=== PATIENT | female | born 1990 | race Caucasian/White ===

== ENCOUNTER 2018-12-10 16:30 | Outpatient (CLI) | payer MEDICAID ==
[~2018-12-10] VITALS: Ht 157.5 cm; Wt 74.0 kg
[2018-12-10 16:35] VITALS: Ht 157.5 cm; Wt 74.0 kg
[2018-12-10 17:10] VITALS: BP 137/93; PULSE 127; RESP 20
[2018-12-10] MEDS ORDERED: PREN1TAB13 PO (17:10)
[2018-12-10] MEDS ORDERED: ACETAMINOPHEN 325 MG TAB PO ONE (18:45)
--- NOTE | 2018-12-10 20:50 | PN ---
Triage Information Date/Time 12/10/18 Reason for visit: elevated BP Weeks of Gestation 22w5d /Para Diabetes: none Hypertention: none Additional information FH mom has HTN was not told to have BP prior to left periorbital headache but self limited ,by the time I went in she is eating and headache is gone Objective Vital Signs Date Temp Pulse Resp B/P (MAP) Pulse Ox O2 O2 Flow FiO2 Time Delivery Rate 12/10/18 98.1 127 20 137/93 Room Air 17:10 (108) Heart Rate: 140's Contractions: None Results/Medications Result Diagram: 12/10/18 1652 12/10/18 1652 Results 24 hrs Laboratory Tests Test 12/10/18 16:45 12/10/18 16:49 12/10/18 16:52 Urine Color STRAW Urine Clarity CLEAR Urine pH 7.0 Urine Specific [place] 1.002 L Urine Ketones NEGATIVE Urine Nitrite NEGATIVE Urine Bilirubin NEGATIVE Urine Urobilinogen NEGATIVE Urine Leukocyte Esterase NEGATIVE Urine Hemoglobin NEGATIVE Urine Glucose NEGATIVE Urine Total Protein NEGATIVE Total Bilirubin 0.1 L 0.1 L Direct Bilirubin 0.00 0.00 Indirect Bilirubin 0.1 0.1 Aspartate Amino Transf (AST/SGOT) 17 19 Alanine Aminotransferase (ALT/SGPT) 15 12 L Alkaline Phosphatase 90 95 Total Protein 7.6 8.2 H Albumin 4.2 4.3 White Blood Count 11.7 H Red Blood Count 3.51 L Hemoglobin 10.9 L Hematocrit 32.5 L Mean Corpuscular Volume 92.6 Mean Corpuscular Hemoglobin 31.1 Mean Corpuscular Hemoglobin Concent 33.5 Red Cell Distribution Width 13.9 Platelet Count 341 Mean Platelet Volume 9.8 Immature Granulocytes % 1.600 H Neutrophils % 76.6 Lymphocytes % 14.1 L Monocytes % 6.5 Eosinophils % 0.5 Basophils % 0.7 Nucleated Red Blood Cells % 0.0 Immature Granulocytes # 0.190 H Neutrophils # 8.9 H Lymphocytes # 1.7 Monocytes # 0.8 Eosinophils # 0.1 Basophils # 0.1 Nucleated Red Blood Cells # 0.0 Sodium Level 140 Potassium Level 4.1 Chloride Level 105 Carbon Dioxide Level 21 Anion Gap 14 H Blood Urea Nitrogen 6 L Creatinine 0.50 Est Glomerular Filtrat Rate mL/min > 60 Glucose Level 99 Uric Acid 4.5 Calcium Level 10.5 H Globulin 3.90 H Albumin/Globulin Ratio 1.10 Disposition: Discharge Assessment/Plan A IUP 22w5d borderline high BP f/u closely for monitoring BP ay her OB has appointmenet in one wk P RTH JAMES Reid MD Dec 10, 2018 20:50
--- NOTE | 2018-12-11 06:04 | TRIAGE ---
OB Triage Datetime Report Generated by CPN: 12/11/2018 06:03 Datetime: 12/10/2018 20:13 Stage of : OB Triage Datetime: 12/10/2018 19:29 Stage of : OB Triage Monitor Mode: External Quality: Mild Pattern: Normal: <= 5 Contractions in 10 Minutes Resting Tone Vian: Relaxed Heart Rate FHR Baseline Rate: 150 Monitor Mode: External US Datetime: 12/10/2018 19:12 Stage of : OB Triage Heart Rate FHR Baseline Rate: 150 Monitor Mode: External US FHR Baseline Changes: No Baseline Change Variability: Moderate 6-25 bpm Accelerations: 15X15 Decelerations: None Datetime: 12/10/2018 19:00 Labor Evaluation Frequency: 0 Monitor Mode: External Heart Rate FHR Baseline Rate: 140 Monitor Mode: External US Datetime: 12/10/2018 18:00 Labor Evaluation Frequency: X2 Monitor Mode: External Duration (sec)2399: 40 Quality: Mild Pattern: Normal: <= 5 Contractions in 10 Minutes Resting Tone Vian: Relaxed Heart Rate FHR Baseline Rate: 150 Monitor Mode: External US Datetime: 12/10/2018 16:49 Stage of : OB Triage Assessment Type: Triage Maternal Assessment Level of Consciousness: Fully Conscious Headache: Generalized Blurred Vision: No Respiratory Effort: Unlabored; Regular Rhythm; Equal Expansion Breath Sounds, Left: Clear and Equal Breath Sounds, Right: Clear and Equal Nausea/Vomiting: Denies RUQ Epigastric Pain: Denies Lower Extremities Edema: None Degree: None Upper Extremities Edema: None Degree: None Facial Edema: None Temperature Route: Axillary Fall Risk Assessment History of Falling: (0) No Secondary Diagnosis: (0) No Ambulatory Aid: (0) Bedrest/Nurse Assist IV Therapy: (0) No Gait: (0) Normal/Bedrest/Immobile Mental Status: (0) Oriented to Own Ability Fall Score: 0 Fall Risk Score Definition: No Risk: No action required Monitor Mode: External Pain Assessment Pain Scale: 0 Pain Presence: None/Denies Pain Type: N/A Pain Goal: 0 Vaginal Exam Membrane Status: Intact Datetime: 12/10/2018 16:37 EGA: 22.5 Datetime: 12/10/2018 16:16 Time of Arrival: 12/10/2018 16:16 Arrived By: Ambulatory Arrived From: Office Chief Complaint: ELEVATED BLOOD PRESSURE IN CLINIC Movement: Present Contractions: Denies/Absent Rupture of Membranes: Denies Vaginal Bleeding: None Vaginal Discharge: Denies Recent Sexual Intercouse: Denies Abdominal Trauma: Not Applicable Patient Complaints: None Time Provider Notified: 12/10/2018 17:00 Provider Notified: DR. BENNETT Initial Plan: [facility]
== END 2018-12-10 20:25 | disposition home or self-care (01) ==
LOC: OBT 16:30 → L-D 16:32 → OBT 20:25
PROVIDERS: ATTEND Obstetrics & Gynecology
DX: O13.2 Gestational [pregnancy-induced] hypertension without significant proteinuria, second trimester (principal); Z3A.22 22 weeks gestation of pregnancy
CPT/HCPCS: 80053; 80076; 81003; 84560; 85025; Z7610; 36415; G0463

== ENCOUNTER 2019-02-11 15:37 | Inpatient (IN) | payer MEDICAID ==
[~2019-02-11] VITALS: Ht 157.5 cm; Wt 75.5 kg
[~2019-02-11 15:37] MED LIST: PREN1TAB13 PO
[2019-02-11 15:51] VITALS: BP 125/87; PULSE 98; RESP 17; Ht 157.5 cm; Wt 75.5 kg
[2019-02-11] MEDS ORDERED: AL HYDROX/MG HYDROX/SIMETH 30 ML CUP PO PRN (19:00)
[2019-02-11] MEDS ORDERED: ONDANSETRON 4 MG INJ IV PRN (19:00)
--- NOTE | 2019-02-11 20:15 | HP ---
Date/Time of Note Date/Time of Note DATE: 02/11/19 TIME: 20:15 OB - History Hx of Present Free Text/Dictation OB Triage Triage Information Date/Time February 11, 2019 at 16:08 Reason for visit: Elevated blood pressure in the office. Patient was sent for rule out PIH Weeks of Gestation 31 weeks and 5 days /Para 1 para 0 Diabetes: none Hypertention: none Additional information 28-year-old G1, P0 with IUP at 31 weeks and 5 days was seen in the clinic today noted to have elevated blood pressure in the range of 140s over 70s. She was sent to labor and delivery for rule out PIH. Patient reports some episodes of blurred vision and headache. At the time that she was in triage denied any headache, blurred vision epigastric pain or right upper quadrant pain. Patient labs requested and noted to have elevated ALT and AST. Patient blood pressure in triage was in the range of 120s 130s over 80s to 90s. Decision was made to admit the patient for observation number 24-hour urine protein collection and follow-up monitoring closely blood pressure due to occasional presence of symptoms. Objective Vital Signs Date Temp Pulse Resp B/P (MAP) Pulse Ox O2 O2 Flow FiO2 Time Delivery Rate 02/11/19 97.9 98 17 125/87 Room Air 15:51 (100) Heart Rate: 130's Exam Appearance: Alert and oriented. Appears to be mild to moderate distress Abdomen: Soft, gravid, fundal height correlate with gestational age NST: Category 1 Extremities: 1+ to 2+ bilateral nonpitting edema. Bilateral 2+ patellar reflexes noted No contraction in the monitor VS - Last 72 Hours, by Label Date Temp Pulse Resp B/P (MAP) Pulse Ox O2 O2 Flow FiO2 Time Delivery Rate 02/11/19 97.9 98 17 125/87 Room Air 15:51 (100) Laboratory Tests Test 02/11/19 15:39 02/11/19 16:35 Urine Color STRAW Urine Clarity CLEAR Urine pH 8.0 Urine Specific [place] 1.003 Urine Ketones TRACE A Urine Nitrite NEGATIVE Urine Bilirubin NEGATIVE Urine Urobilinogen NEGATIVE Urine Leukocyte Esterase TRACE A Urine Microscopic RBC 0 Urine Microscopic WBC 11 H Urine Squamous Epithelial Cells FEW Urine Bacteria FEW A Urine Yeast (Budding) FEW A Urine Hemoglobin NEGATIVE Urine Glucose NEGATIVE Urine Total Protein NEGATIVE White Blood Count 9.2 # Red Blood Count 3.51 L Hemoglobin 11.0 L Hematocrit 32.1 L Mean Corpuscular Volume 91.5 Mean Corpuscular Hemoglobin 31.3 Mean Corpuscular Hemoglobin Concent 34.3 Red Cell Distribution Width 13.7 Platelet Count 273 Mean Platelet Volume 10.1 Immature Granulocytes % 0.800 H Neutrophils % 76.7 Lymphocytes % 14.7 L Monocytes % 6.5 Eosinophils % 0.5 Basophils % 0.8 Nucleated Red Blood Cells % 0.0 Immature Granulocytes # 0.070 H Neutrophils # 7.1 Lymphocytes # 1.4 Monocytes # 0.6 Eosinophils # 0.1 Basophils # 0.1 Nucleated Red Blood Cells # 0.0 Prothrombin Time 12.6 Prothrombin Time Ratio 1.0 INR International Normalized Ratio 0.93 Activated Partial Thromboplast Time 26.0 Sodium Level 138 Potassium Level 3.7 Chloride Level 110 Carbon Dioxide Level 22 Anion Gap 6 Blood Urea Nitrogen 6 L Creatinine 0.60 Est Glomerular Filtrat Rate mL/min > 60 Glucose Level 94 Uric Acid 5.2 Calcium Level 9.7 Total Bilirubin 0.3 Direct Bilirubin 0.00 Indirect Bilirubin 0.3 Aspartate Amino Transf (AST/SGOT) 44 Alanine Aminotransferase (ALT/SGPT) 74 H Alkaline Phosphatase 117 Total Protein 6.9 Albumin 3.7 Globulin 3.20 Albumin/Globulin Ratio 1.15 Results/Medications Result Diagram: 02/11/19 1635 02/11/19 1635 Results 24 hrs Laboratory Tests Test 02/11/19 15:39 02/11/19 16:35 Urine Color STRAW Urine Clarity CLEAR Urine pH 8.0 Urine Specific [place] 1.003 Urine Ketones TRACE A Urine Nitrite NEGATIVE Urine Bilirubin NEGATIVE Urine Urobilinogen NEGATIVE Urine Leukocyte Esterase TRACE A Urine Microscopic RBC 0 Urine Microscopic WBC 11 H Urine Squamous Epithelial Cells FEW Urine Bacteria FEW A Urine Yeast (Budding) FEW A Urine Hemoglobin NEGATIVE Urine Glucose NEGATIVE Urine Total Protein NEGATIVE White Blood Count 9.2 # Red Blood Count 3.51 L Hemoglobin 11.0 L Hematocrit 32.1 L Mean Corpuscular Volume 91.5 Mean Corpuscular Hemoglobin 31.3 Mean Corpuscular Hemoglobin Concent 34.3 Red Cell Distribution Width 13.7 Platelet Count 273 Mean Platelet Volume 10.1 Immature Granulocytes % 0.800 H Neutrophils % 76.7 Lymphocytes % 14.7 L Monocytes % 6.5 Eosinophils % 0.5 Basophils % 0.8 Nucleated Red Blood Cells % 0.0 Immature Granulocytes # 0.070 H Neutrophils # 7.1 Lymphocytes # 1.4 Monocytes # 0.6 Eosinophils # 0.1 Basophils # 0.1 Nucleated Red Blood Cells # 0.0 Prothrombin Time 12.6 Prothrombin Time Ratio 1.0 INR International Normalized Ratio 0.93 Activated Partial Thromboplast Time 26.0 Sodium Level 138 Potassium Level 3.7 Chloride Level 110 Carbon Dioxide Level 22 Anion Gap 6 Blood Urea Nitrogen 6 L Creatinine 0.60 Est Glomerular Filtrat Rate mL/min > 60 Glucose Level 94 Uric Acid 5.2 Calcium Level 9.7 Total Bilirubin 0.3 Direct Bilirubin 0.00 Indirect Bilirubin 0.3 Aspartate Amino Transf (AST/SGOT) 44 Alanine Aminotransferase (ALT/SGPT) 74 H Alkaline Phosphatase 117 Total Protein 6.9 Albumin 3.7 Globulin 3.20 Albumin/Globulin Ratio 1.15 Medications Current Medications Al Hydrox/Mg Hydrox/Simethicone (Mag-Al Plus) 30 ml Q6H PRN PO .GI UPSET; Start 02/11/19 at 19:00 Ondansetron HCl (Zofran Inj) 4 mg Q6H PRN IV NAUSEA/VOMITING; Start 02/11/19 at 19:00 Diagnostic Test (Pha) (Accu-Chek) 1 ea FBSPP XX ; Start 02/12/19 at 06:00; Status UNV Disposition: Admit Assessment/Plan IUP at 31 weeks and 5 days Borderline elevated blood pressure with elevated liver function tests mildly elevated liver function tests Patient will be admitted for close monitoring, 24-hour urine protein collection as well as close monitoring of blood pressure check Plan of care discussed with the patient Primary OB attending aware with follow-up on the patient Copies To: Copies To: CHER HANSON MD February 11, 2019 20:14 Past Family/Social History * Past Medical, Surgical, Family and Obstetric Histories reviewed from chart. OB Admission Exam Vital Signs Vital Signs Vital Signs Date Temp Pulse Resp B/P (MAP) Pulse Ox O2 O2 Flow FiO2 Time Delivery Rate 02/11/19 97.9 98 17 125/87 Room Air 15:51 (100) Last 72 hours Lab Results CBC & BMP 02/11/19 16:35 Liver Function Test 02/11/19 16:35 Alanine Aminotransferase (ALT/SGPT) 74 H Albumin 3.7 Alkaline Phosphatase 117 Aspartate Amino Transf (AST/SGOT) 44 Direct Bilirubin 0.00 Total Protein 6.9 CHER HANSON MD February 11, 2019 20:15
[2019-02-11] MEDS ORDERED: GLUCOSE GEL 15 GRAM TUBE PO PRN ×2 (20:30)
[2019-02-11] MEDS ORDERED: GLUCAGON 1 MG INJ IM PRN (20:30)
[2019-02-11] MEDS ORDERED: GLUCOSE GEL 15 GRAM TUBE BUCCAL PRN (20:30)
[2019-02-11] MEDS ORDERED: DEXTROSE 50% 50 ML SYRINGE IV PRN ×2 (20:30)
[2019-02-12] MEDS ORDERED: ACCU-CHEK XX SCH (06:00)
--- NOTE | 2019-02-12 18:46 | QN ---
Documentation Comment progress note patient seen and evaluated no complaints no headache, n/v, sob visual changes, epigastric pain vs stable afebrile ab gravid, nt, no epigastric tenderness fhr cat 1 a/ iup at 32 wks ga, with elevated liver enzyme (stable) r/o preeclampsia p/ f/u 24 hr urine collection preeclamptic precautions MICHAEL BENNETT MD February 12, 2019 18:46
== END 2019-02-12 22:51 | disposition left against medical advice (07) | DRG 833 ==
LOC: OBT 15:37 → L-D 15:37 → OBT 16:08 → L-D 16:08
PROVIDERS: ADMIT Obstetrics & Gynecology; ATTEND Obstetrics & Gynecology
DX: O14.93 Unspecified pre-eclampsia, third trimester (principal); Z3A.32 32 weeks gestation of pregnancy
CPT/HCPCS: 36415; 76815; 76818; 80053; 81001; 82575; 82962; 84156; 84450; 84460; 84560; 85025; 85610; 85730; 87086; G0463

== ENCOUNTER 2019-02-19 13:46 | Inpatient (IN) | payer MEDICAID ==
[~2019-02-19] VITALS: Ht 157.5 cm; Wt 74.9 kg
[2019-02-19 14:26] VITALS: BP 140/93; PULSE 122; Ht 157.5 cm; Wt 74.9 kg
[2019-02-19] MEDS ORDERED: VANCOMYCIN 1 GM (PMX) 250 ML IVPB SCH (16:30)
[2019-02-19] MEDS: LACTATED RINGER'S 1,000 ML IV SCH (17:20)
[2019-02-19] MEDS: BETAMET NA PHOS/AC(6 MG/ML) 2 ML INJ SYG IM SCH (18:53)
[2019-02-19] MEDS ORDERED: VANCOMYCIN IV PER PHARMACY XX SCH (21:30)
--- NOTE | 2019-02-19 23:20 | QN ---
Documentation Comment 28-year-old 1 para 0 at 32 weeks and 6 days of gestation with estimated date of delivery April 10, 2019 Patient is gestational diabetic diet controlled She was admitted for evaluation of preeclampsia Blood pressure here 141/102 and 133/94 VS - Last 72 Hours, by Label Date Temp Pulse Resp B/P (MAP) Pulse Ox O2 O2 Flow FiO2 Time Delivery Rate 02/19/19 98.3 122 140/93 14:26 (109) heart rate tracing category 1 [place] none February 12, 2019 UR TOT PROT 24HR = 1925.0 mg/24hrs Hematology - 72 Hrs Test 02/19/19 16:58 Hematocrit 34.0 % (37.0-47.0) L Hemoglobin 11.4 g/dl (12.0-16.0) L Mean Corpuscular Hemoglobin 30.9 pg (29.0-33.0) Mean Corpuscular Hemoglobin Concent 33.5 g/dl (32.0-37.0) Mean Corpuscular Volume 92.1 fl (82.0-101.0) Mean Platelet Volume 10.1 fl (7.4-10.4) Platelet Count 254 10^3/UL (140-415) Red Blood Count 3.69 10^6/ul (4.20-5.40) L Red Cell Distribution Width 13.9 % (11.5-14.5) White Blood Count 9.5 10^3/ul (4.8-10.8) Chemistry Test 02/19/19 16:58 02/19/19 19:40 Sodium Level 135 mmol/L (135-144) Potassium Level 4.3 mmol/L (3.5-5.1) Chloride Level 102 mmol/L (97-110) Carbon Dioxide Level 24 mmol/L (21-31) Anion Gap 9 (5-13) Blood Urea Nitrogen 8 mg/dl (7-20) Creatinine 0.82 mg/dl (0.44-1.00) Est Glomerular Filtrat Rate mL/min > 60 mL/min (>60) Glucose Level 104 mg/dl (70-220) Hemoglobin A1c 5.1 % (0-5.9) Uric Acid 5.9 mg/dl (3.1-7.9) Calcium Level 9.1 mg/dl (8.4-10.2) Total Bilirubin 0.4 mg/dl (0.2-1.3) Direct Bilirubin 0.00 mg/dl (0.00-0.20) Indirect Bilirubin 0.4 mg/dl (0-1.1) Aspartate Amino Transf (AST/SGOT) 61 IU/L (15-46) H Alanine Aminotransferase (ALT/SGPT) 83 IU/L (13-69) H Alkaline Phosphatase 125 IU/L (42-121) H Total Protein 7.5 g/dl (6.1-8.1) Albumin 3.8 g/dl (3.3-4.9) Globulin 3.70 g/dl (1.3-3.2) H Albumin/Globulin Ratio 1.02 Bedside Glucose 102 mg/dL (70-220) Urine Results - 72 Hrs Test 02/19/19 14:30 Urine Color YELLOW (YELLOW) Urine Clarity SLIGHTLY CLOUDY (CLEAR) Urine pH 8.0 (5.0-9.0) Urine Specific [place] 1.003 (1.003-1.030) Urine Ketones NEGATIVE mg/dL (NEGATIVE) Urine Nitrite NEGATIVE mg/dL (NEGATIVE) Urine Bilirubin NEGATIVE mg/dL (NEGATIVE) Urine Urobilinogen NEGATIVE mg/dL (NEGATIVE) Urine Leukocyte Esterase 3+ [place]/ul (NEGATIVE) H Urine Microscopic RBC 1 /HPF (0-5) Urine Microscopic WBC 14 /HPF (0-5) H Urine Squamous Epithelial Cells FEW /HPF (FEW) Urine Bacteria MODERATE /HPF (NONE SEEN) Urine Hemoglobin NEGATIVE mg/dL (NEGATIVE) Urine Glucose NEGATIVE mg/dL (NEGATIVE) Urine Total Protein NEGATIVE mg/dl (NEGATIVE) PROCEDURE: US OB biophysical profile. CLINICAL INDICATION: Decreased movements. labor. TECHNIQUE: Multiple sonographic images of the pelvis were obtained. The images were reviewed on a PACS workstation. COMPARISON: 02/11/2019 FINDINGS: There is a live intrauterine gestation. There is a normal amount of amniotic fluid with an B[place] = 16.7 cm. Maximal volume pocket = 4.8 cm. Position: Cephalic. Cardiac activity is present with 144 beats per minute. The placenta is anterior. No evidence of placenta previa or abruption. Biophysical profile: movement 2/2 tone 2/2. breathing 2/2 [place] 2/2 Total 04/29 IMPRESSION: Normal biophysical profile. Estimated gestational age: 32 weeks and 6 days RPTAT:AAJJ Lisa Prince Physician Date Time Electronically viewed and signed by Lisa Prince Physician on 02/19/2019 15:24 MH/ CC: JAMES HOPKINS MD [id number] Assessment and plan Patient status post 1 dose of betamethasone second dose to be given tomorrow Continue with IV antibiotics for presumed UTI- please note patient is allergic to penicillin Urine culture pending Continuous monitoring ANDERSON VASQUEZ MD February 19, 2019 23:20
[2019-02-20] MEDS: LACTATED RINGER'S 1,000 ML IV SCH ×3 (02:51→23:56)
[2019-02-20] MEDS: VANCOMYCIN 1 GM 250 ML IVPB SCH ×2 (05:50→17:57)
[2019-02-20] MEDS: PRENATAL VITAMIN PO SCH (09:10)
[2019-02-20] MEDS: FERROUS SULFATE (EC) 325 MG TAB PO SCH (09:10)
[2019-02-20] MEDS: DOCUSATE SODIUM 100 MG CAP PO SCH ×2 (09:10→22:30)
[2019-02-20] MEDS ORDERED: LABETALOL 100 MG TAB PO ONE (10:50)
--- NOTE | 2019-02-20 11:32 | PERINOTE ---
Date/Time of Note Date/Time of Note DATE: 02/20/19 TIME: 11:09 Assessment/Recommendations Other Assessments 28 yo G1 at 33w0d with preeclampsia, currently does not meet criteria for severe features but may meet criteria if blood pressures continue to increase or LFTs increase to twice normal. She is receiving steroid course. Comment: Preeclampsia is defined as: Blood pressure of 140 mm Hg systolic or higher or 90 mm Hg diastolic or higher that occurs after 20 weeks of gestation in a woman with previously normal blood pressure on 2 occasions at least 4 hours apart plus; Proteinuria, defined as urinary excretion of 0.3 g protein or higher in a 24- hour urine specimen or urine protein/creatinine ratio of 0.3mg/dL *Or in the absence of proteinuria, new onset of any of the following: a. Thrombocystopenia, platelet count <100K b. Renal insufficiency, Cr >1.1mg/dL or doubling c. Impaired liver function, LFTs twice normal d. Pulmonary edema e. New-onset headache not responsive to medication or visual symptoms Preeclampsia is considered to have severe features if one or more of the following criteria is present: (1) Blood pressure of 160 mm Hg systolic or higher or 110 mm Hg diastolic or higher on two occasions at least 4 hours apart while the patient is on bed rest (2) Thrombocystopenia, platelet count <100K (3) Renal insufficiency, Cr >1.1mg/dL or doubling (4) Impaired liver function, LFTs twice normal or severe persistent right upper quadrant or epigastric pain unresponsive to medication and not accounted for by alternative diagnoses (5) Pulmonary edema (6) New-onset headache not responsive to medication or visual symptoms Recommendations: RECOMMENDATIONS: 1. Maternal management: a) hospitalization for bedrest *Note: patients with severe features are not candidates for ambulatory management at home. b) If preeclampsia with severe features, magnesium sulfate while in labor and for 24 hours . Of note, the therapeutic range of magnesium is 4-7mEq/L or 5-9mg/dL. c) Treatment of blood pressure if there is sustained blood pressure above 160/110. This may be achieved with the use of Hydralazine: 5-10-mg doses intravenously every 20 minutes until desired response is achieved to a maximum cumulative dose of 20mg Labetalol: 10-20-mg intravenous bolus dose followed by 20-80 mg every 10 minutes to maximum total dose of 300mg Medication doses as per ACOG Practice Bulletin # 202. 2. Maternal monitoring: Blood pressure and status checks (headache, reflexes) at every visit weekly if managed as outpatient. 3. Monitoring of well being: twice weekly modified biophysical profile 4. Laboratory studies (to be performed weekly or more frequently if disease progression is a concern- in this patient consider labs every 2-3 days to monit or LFTs): a. CBC with platelets b. BUN/Creatinine c. AST/ALT d. Fibrinogen/FSP 4. Other consultations: Consider NICU consultation 5. Delivery planning: a) Deliver for signs of maternal or distress. b) A patient with preeclampsia without severe features is delivered at 37 weeks c) A patient with preeclampsia with severe features can be expectantly managed as an inpatient with delivery recommended at 34 0/7 weeks in appropriate candidates. During expectant management, delivery is recommended at any time in the case of deterioration of maternal or condition. Examples of conditions precluding expectant management include: *Uncontrolled severe-range blood pressures not responsive to antihypertensive medication *Persistent headaches, refractory to treatment *Stroke, visual disturbances, altered sensorium or motor deficit *Myocardial infarction *HELLP syndrome *Creatinine >1.1mg/dL or twice baseline *Pulmonary edema *Suspected placental abruption *Abnormal testing or persistent reversed end-diastolic flow in the umbilical artery Doppler d) A patient with severe preeclampsia or eclampsia is usually delivered immediately. An exception may be made for a patient with some forms of severe preeclampsia remote from term, but this management requires intensive medical monitoring. OB Subjective Free Text/Dictaton 28 yo G1 with IUP at 33w0d admitted for preeclampsia evaluation. Patient presented to clinic and had elevated blood pressures so was sent to hospital for evaluation. She denies history of chronic hypertension. has been complicated by diet-controlled GDM. She denies LOW, vision changes, RUQ/epigastric pain. HD# 2 IUP @ 33w0d Complaints/Overnight events Patient has a 24h urine collection that is >300mg protein on 02/11. Her preeclampsia labs are significant for slightly increased LFTs, although not twice normal. Her LFTs have increased slightly since 02/11. Remainder of preeclampsia labs are within normal range (Hb, platelets, Cr). She has received one dose of BMTZ. She is also being treated for a UTI. Current Medications Current Medications Lactated Ringer's 1,000 ml @ 125 mls/hr Q8H IV Last administered on 02/20/19at 02:51; Admin Dose 125 MLS/HR; Start 02/19/19 at 16:09 Betamethasone Acet/Betameth SodPhos ([place] Soluspan) 12 mg Q24H IM Last administered on 02/19/19at 18:53; Admin Dose 12 MG; Start 02/19/19 at 16:30; Stop 02/20/19 at 16:31 Prenat Multivit/ Molasses And Caramel Operator/Iron/Folic Ac () 1 tab DAILY PO Last administered on 02/20/19at 09:10; Admin Dose 1 TAB; Start 02/20/19 at 09:00 Ferrous Sulfate (Ferrous Sulfate (Ec)) 325 mg DAILY PO Last administered on 02/20/19at 09:10; Admin Dose 325 MG; Start 02/20/19 at 09:00 Vancomycin HCl 250 ml @ 125 mls/hr Q12H IVPB Last administered on 02/20/19at 05:50; Admin Dose 125 MLS/HR; Start 02/20/19 at 06:00 Vancomycin HCl (Vanco Iv Per Pharmacy) PER PHARMACY DOSING NOTE XX ; Start 02/19/19 at 21:30 Docusate Sodium (Colace) 100 mg BID PO Last administered on 02/20/19at 09:10; Admin Dose 100 MG; Start 02/20/19 at 09:00 OB Admission Exam Physical Exam Vitals: Vital Signs Date Temp Pulse Resp B/P (MAP) Pulse Ox O2 O2 Flow FiO2 Time Delivery Rate 02/19/19 98.3 122 140/93 14:26 (109) Last 72 hourBlood Glucose Bedside Glucose - 72 Hours Test 02/19/19 19:40 02/20/19 08:11 02/20/19 11:05 Bedside Glucose 102 mg/dL (70-220) 90 mg/dL (70-220) 112 mg/dL (70-220) Last 72 hours Lab Results CBC & BMP 02/19/19 16:58 Liver Function Test 02/19/19 16:58 Alanine Aminotransferase (ALT/SGPT) 83 H Albumin 3.8 Alkaline Phosphatase 125 H Aspartate Amino Transf (AST/SGOT) 61 H Direct Bilirubin 0.00 Total Protein 7.5 Hemoglobin A1C Test 02/19/19 16:58 Hemoglobin A1c 5.1 Ultrasound Results BPP 04/29 BRAX[place] 16.7 MARY JANE CALDERON MD Feb 20, 2019 11:20
--- NOTE | 2019-02-20 18:23 | QN ---
Documentation Comment HD # 1 IUP at 33 weeks, gestational DM, PIH with slightly elevated LFT's (ALT/AST 61/83), 24 hour urine protein 600. Her 2nd betamethasone will be given tonight. She had not been on BP meds but earlier today her BP's were 137/104 and 136/106 and they normalized after Labetalol 100 mg p.o. once. Pt denies any LOW's, visual changes, epigastric pain except for usual acid reflux type pain in the mid to left upper quadrant. On Vanco for a UTI ( allergy to PCN). BP 139/85 heart tracing baseline 150 with accels to 165. No decels or UC's. P: 2nd betamethasone shot. Continue to follow BP's. NICU consult. Prilosec or equivalent. Change Vancomycin to Macrobid p.o. Continue care. Repeat labs on Thursday 02/22. CLIFF LEIVA MD Feb 20, 2019 18:23
[2019-02-20] MEDS ORDERED: LABETALOL 100 MG TAB PO PRN (18:30)
[2019-02-20] MEDS: BETAMET NA PHOS/AC(6 MG/ML) 2 ML INJ SYG IM SCH (19:00)
[2019-02-20] MEDS: NITROFURANTOIN (SR) 100 MG CAP PO SCH (22:30)
[2019-02-20] MEDS: RANITIDINE 150 MG TAB PO SCH (22:40)
[2019-02-21] MEDS: LACTATED RINGER'S 1,000 ML IV SCH ×4 (00:09→22:36)
[2019-02-21] MEDS: FERROUS SULFATE (EC) 325 MG TAB PO SCH (08:16)
[2019-02-21] MEDS: PRENATAL VITAMIN PO SCH (08:16)
[2019-02-21] MEDS: NITROFURANTOIN (SR) 100 MG CAP PO SCH ×2 (08:16→20:39)
[2019-02-21] MEDS: DOCUSATE SODIUM 100 MG CAP PO SCH ×2 (08:16→20:39)
--- NOTE | 2019-02-21 15:08 | QN ---
Documentation Comment IUP at 33 + weeks, gestational DM,Severe PIH NST reassuring Trainer No CTXs Pelvic Deferred --->Severe PIH,Possible discharge at 34 wks CAM FULLER M.D. Feb 21, 2019 15:08
[2019-02-21] MEDS: RANITIDINE 150 MG TAB PO SCH ×2 (22:00→22:38)
--- NOTE | 2019-02-22 03:49 | HP ---
Date/Time of Note Date/Time of Note DATE: 02/22/19 TIME: 03:33 OB - History Hx of Present Free Text/Dictation 28y.o primigravida at 32w6d here c/o vaginal pressure. EFM only showed x1 uc while in triage, BP at triage 140/93 HR 122 T98.3 24hr urine on 02/12/19 was 1925 u/a leuko est +++ with wbc 14 , sent for urine culture and sensitivities allergic to pcn ,allergic reaction was angioedema? pharmacist suggest vancomycin to be given admitted to antepartum for antibiotics for UTI and prep for poss early delivery for GHTN and perinatalogy consultation. Chief Complaint: vaginal pressure Estimated Due Date: Apr 10, 2019 : 1 Para: 0 Care: Other Ultrasounds: Other Obstetrical Complications: Gestational Diabetes, Gestational Hypertension Medical Complications: None Past Family/Social History * Past Medical, Surgical, Family and Obstetric Histories reviewed from chart. Blood Type: Unknown Rubella: unknown RPR/VDRL: Unknown GBS Status: Unknown HBsAG: Unknown OB Admission Exam Vital Signs Vital Signs Vital Signs Date Temp Pulse Resp B/P (MAP) Pulse Ox O2 O2 Flow FiO2 Time Delivery Rate 02/19/19 98.3 122 140/93 14:26 (109) Physical Exam HEENT: WNL Heart: Rhythm Normal Lungs: Clear, Equal Abdomen: WNL Extremities: Normal Reflexes: Normal Cervical Dilatation: other Effacement: Other Station: Other Membranes: Intact Amniotic Fluid: Unevaluable Heart Rate: 140's Accelerations: Accelerations Present Decelerations: No Decelerations Varibility: Moderate Contractions on Admission: >10 Minutes Apart Intensity: Mild Last 72 hourBlood Glucose Bedside Glucose - 72 Hours Test 02/19/19 19:40 02/20/19 08:11 02/20/19 11:05 02/20/19 14:03 Bedside 102 90 112 114 Glucose mg/dL (70-220) mg/dL (70-220) mg/dL (70-220) mg/dL (70-220) Test 02/20/19 20:22 02/21/19 07:23 02/21/19 09:49 02/21/19 15:00 Bedside 175 96 95 104 Glucose mg/dL (70-220) mg/dL (70-220) mg/dL (70-220) mg/dL (70-220) Test 02/21/19 20:38 Bedside 121 Glucose mg/dL (70-220) Last 72 hours Lab Results CBC & BMP 02/19/19 16:58 Liver Function Test 02/19/19 16:58 Alanine Aminotransferase (ALT/SGPT) 83 H Albumin 3.8 Alkaline Phosphatase 125 H Aspartate Amino Transf (AST/SGOT) 61 H Direct Bilirubin 0.00 Total Protein 7.5 Hemoglobin A1C Test 02/19/19 16:58 Hemoglobin A1c 5.1 OB Assessment/Plan Reason for admission: other (UTI) Other Assessment: IUP 32w6d GHTN GDM Plan: Other (vancomycin, betamethazone,perinatalogy consultation) JAMES HOPKINS MD Feb 22, 2019 03:45
[2019-02-22] MEDS: LACTATED RINGER'S 1,000 ML IV SCH ×3 (06:17→22:30)
[2019-02-22] MEDS: ACCU-CHEK XX SCH ×4 (07:45→20:18)
[2019-02-22] MEDS: PRENATAL VITAMIN PO SCH (09:08)
[2019-02-22] MEDS: DOCUSATE SODIUM 100 MG CAP PO SCH ×2 (09:08→20:54)
[2019-02-22] MEDS: FERROUS SULFATE (EC) 325 MG TAB PO SCH ×2 (09:08→20:54)
[2019-02-22] MEDS: NITROFURANTOIN (SR) 100 MG CAP PO SCH ×2 (09:08→20:55)
--- NOTE | 2019-02-22 11:48 | QN ---
Documentation Comment progress note patient seen and evaluated no complaints no headache, n/v, sob, visual changes, epigastric pain vs bp 140'/90's ab gravid nt, no epigastric tenderness extremity no edema no calf tenderness a/ iup at 33 wk 2 days ga, preeclampsia without severe features p/ preeclamptic precautions f/u with perinatology for possible outpatient management MICHAEL BENNETT MD Feb 22, 2019 11:48
[2019-02-22] MEDS ORDERED: LABETALOL HCL 20MG INJ IV ONE (21:00)
[2019-02-22] MEDS: RANITIDINE 150 MG TAB PO SCH (22:30)
[2019-02-22] MEDS: LABETALOL 100 MG TAB PO SCH (23:29)
[2019-02-23] MEDS: LACTATED RINGER'S 1,000 ML IV SCH ×2 (05:56→13:53)
--- NOTE | 2019-02-23 07:54 | QN ---
Documentation Comment progress note patient seen and evaluated no complaints no headache, n/v, sob, visual changes, epigastric pain vs bp 140'- 150's /90's ab gravid nt, no epigastric tenderness extremity no edema no calf tenderness a/ iup at 33 wk 3 days ga, preeclampsia without severe features p/ preeclamptic precautions f/u with perinatology f/ulabs MICHAEL BENNETT MD Feb 23, 2019 07:54
[2019-02-23] MEDS: ACCU-CHEK XX SCH ×4 (08:43→20:44)
[2019-02-23] MEDS: DOCUSATE SODIUM 100 MG CAP PO SCH ×2 (08:45→23:00)
[2019-02-23] MEDS: PRENATAL VITAMIN PO SCH (08:45)
[2019-02-23] MEDS: NITROFURANTOIN (SR) 100 MG CAP PO SCH ×2 (08:45→23:00)
[2019-02-23] MEDS: FERROUS SULFATE (EC) 325 MG TAB PO SCH ×2 (08:45→23:00)
[2019-02-23] MEDS: LABETALOL 100 MG TAB PO SCH ×2 (08:46→23:00)
--- NOTE | 2019-02-23 14:58 | CONS ---
DATE OF ADMISSION: 02/19/2019 DATE OF CONSULTATION: 02/23/2019 HISTORY OF PRESENT ILLNESS: The patient is currently at 33 weeks and 3 days, presented with elevated blood pressure. Her blood pressures are mostly in the moderate and normal range; however, she has h ad a few severe range blood pressures last night and yesterday afternoon. I do recommend delivery at 34 weeks secondary to severe preeclampsia given the blood pressures with f ew severe ranges, also a 24-hour urine protein over 300 and elevated liver enzymes more than twice no rmal. Delivery earlier than 34 weeks is recommended in case of persistent severe range blood pressur es, neurologic, GI or right upper quadrant pain or respiratory problems or nonreassuring heart tone or in case the platelet drops less than 100,000. Otherwise, delivery at 34 weeks is recommended and up until then, please monitor the patient in house with 24-hour heart tone monitoring. Dictated By: MELANI ARROYO MD ST/NTS Conf#: [id number] DID#: [id number] CC: MICHAEL BENNETT MD;*EndCC*
[2019-02-23] MEDS ORDERED: LABETALOL HCL 20MG INJ IV ONE (20:00)
--- NOTE | 2019-02-23 20:15 | CONS ---
Consultation Date/Type/Reason Admit Date/Time February 19, 2019 at 16:26 Date of Consultation: Feb 23, 2019 Type of Consult Medicine Reason for Consultation [place] medicine requested by Dr. Tavares to breastfeeding peer counselor mother regarding anticipated course and potential problems encountered with delivery at 34 completed weeks of quintero having received full course of steroids. Mother is a 28 yo [id number] with EDC 04/10/2019 (EGA 33 3/7 wks) with complicated by gestational diabetes and preeclampsia. Treated with Betamethasone 02/19 and 02/20. Met with mother at bedside with sign language interpreter. Discussed very high probability of survival. 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 Discussed issues related to apnea of prematurity and infection which may impact hospital course. Mother appeared to understand and asked appropriate questions. Assured mother of availability to answer further questions if they should arise. Date/Time of Note DATE: 02/23/19 TIME: 19:48 Past Medical History Home Meds Reported Medications Pnv95/Ferrous Fumarate/FA ( Vitamins Tablet) 1 Each Tablet, 1 EACH PO D AILY, TAB 12/10/18 Medications Current Medications Lactated Ringer's 1,000 ml @ 125 mls/hr Q8H IV Last administered on 02/23/19at 13:53; Admin Dose 125 MLS/HR; Start 02/19/19 at 16:09 Prenat Multivit/ [place]/Iron/Folic Ac () 1 tab DAILY PO Last admi nistered on 02/23/19 08:45; Admin Dose 1 TAB; Start 02/20/19 at 09:00 Docusate Sodium (Colace) 100 mg BID PO Last administered on 02/23/19 08:45; Admin Dose 100 MG; Start 02/20/19 at 09:00 Nitrofurantoin Macrocrystals (Macrobid) 100 mg BID PO Last administered on 02/23/19 08:45; Admin Dose 100 MG; Start 02/20/19 at 22:00 Ranitidine HCl (Zantac) 150 mg HS PO Last administered on 02/22/19at 22:30; Admin Dose 150 MG; Start 02/20/19 at 22:00 Diagnostic Test (Pha) (Accu-Chek) 1 ea FBSPP XX Last administered on 02/22/19at 20:18; Admin Dose 1 EA; Start 02/22/19 at 07:30 Ferrous Sulfate (Ferrous Sulfate (Ec)) 325 mg BID PO Last administered on 02/23/19at 08:45; Admin Dose 325 MG; Start 02/22/19 at 21:00 Labetalol HCl (Normodyne) 200 mg Q12 PO Last administered on 02/23/19at 08:46; Admin Dose 200 MG; Start 02/22/19 at 22:30 Allergies: Coded Allergies: Penicillins (Verified Allergy, Intermediate, rash, 02/11/19) Social History Smoking Status: Never smoker Exam/Review of Systems Exam Vitals Vital Signs Date Temp Pulse Resp B/P (MAP) Pulse Ox O2 O2 Flow FiO2 Time Delivery Rate 02/19/19 98.3 122 140/93 14:26 (109) Intake and Output 02/22/19 02/22/19 02/23/19 1515:00 23:00 07:00 IntakeIntake Total 1000 ml 1125 ml OutputOutput Total 1750 ml BalanceBalance -750 ml 1125 ml Results Result Diagram: 02/23/19 0714 02/23/19 0714 Results 24hrs Laboratory Tests Test 02/22/19 20:07 02/23/19 07:14 02/23/19 08:43 02/23/19 11:22 Bedside Glucose 90 73 79 White Blood Count 11.1 H Red Blood Count 3.32 L Hemoglobin 10.3 L Hematocrit 31.2 L Mean Corpuscular Volume 94.0 Mean Corpuscular 31.0 Hemoglobin Mean Corpuscular 33.0 Hemoglobin Concent Red Cell Distribution 14.2 Width Platelet Count 233 Mean Platelet Volume 10.5 H Immature Granulocytes % 2.300 H Neutrophils % 74.4 Lymphocytes % 15.1 Monocytes % 7.0 Eosinophils % 0.3 Basophils % 0.9 Nucleated Red Blood 0.3 H Cells % Immature Granulocytes # 0.260 H Neutrophils # 8.2 H Lymphocytes # 1.7 Monocytes # 0.8 Eosinophils # 0.0 Basophils # 0.1 Nucleated Red Blood 0.0 Cells # Sodium Level 140 Potassium Level 4.1 Chloride Level 110 Carbon Dioxide Level 22 Anion Gap 8 Blood Urea Nitrogen 6 L Creatinine 0.61 Est Glomerular Filtrat > 60 Rate mL/min Glucose Level 71 Calcium Level 9.0 Total Bilirubin 0.4 Direct Bilirubin 0.00 Indirect Bilirubin 0.4 Aspartate Amino 136 H Transf (AST/SGOT) Alanine 247 H Aminotransferase (ALT/SG PT) Alkaline Phosphatase 109 Total Protein 6.5 Albumin 3.4 Globulin 3.10 Albumin/Globulin Ratio 1.09 Test 02/23/19 14:51 Bedside Glucose 88 Medications Medication Current Medications Lactated Ringer's 1,000 ml @ 125 mls/hr Q8H IV Last administered on 02/23/19 13:53; Admin Dose 125 MLS/HR; Start 02/19/19 at 16:09 Prenat Multivit/ [place]/Iron/Folic Ac () 1 tab DAILY PO Last administered on 02/23/19 08:45; Admin Dose 1 TAB; Start 02/20/19 at 09:00 Docusate Sodium (Colace) 100 mg BID PO Last administered on 02/23/19 08:45; Admin Dose 100 MG; Start 02/20/19 at 09:00 Nitrofurantoin Macrocrystals (Macrobid) 100 mg BID PO Last administered on 02/23/19 08:45; Admin Dose 100 MG; Start 02/20/19 at 22:00 Ranitidine HCl (Zantac) 150 mg HS PO Last administered on 02/22/19 22:30; Admin Dose 150 MG; Start 02/20/19 at 22:00 Diagnostic Test (Pha) (Accu-Chek) 1 ea FBSPP XX Last administered on 02/22/19 20:18; Admin Dose 1 EA; Start 02/22/19 at 07:30 Ferrous Sulfate (Ferrous Sulfate (Ec)) 325 mg BID PO Last administered on 02/23/19 08:45; Admin Dose 325 MG; Start 02/22/19 at 21:00 Labetalol HCl (Normodyne) 200 mg Q12 PO Last administered on 02/23/19 08:46; Admin Dose 200 MG; Start 02/22/19 at 22:30 ELMER MULLINS MD Feb 23, 2019 20:14
[2019-02-23] MEDS ORDERED: MAGNESIUM SULFATE 4 GM/100 ML 100 ML IVPB ONE (20:30)
[2019-02-23] MEDS ORDERED: OXYTOCIN 30 UNITS/LR 500 ML IV SCH (21:00)
[2019-02-23] MEDS ORDERED: CLINDAMYCIN 900 MG/D5W (PMX) 50 ML IVPB SCH (21:00)
[2019-02-23] MEDS ORDERED: LABETALOL 100 MG TAB PO SCH (21:00)
--- NOTE | 2019-02-23 21:06 | QN ---
Documentation Comment patient continues to have persistent elevated blood pressure and complaining of blurry vision. patient evaluation was discussed with Dr. Vences and agrees for delivery start seizure prophylaxis and antihypertensive medication to stabilize patient and consent for primary CD. r/b/a explained all question were answered and translated in [place]ian. MICHAEL BENNETT MD Feb 23, 2019 21:06
--- NOTE | 2019-02-23 21:08 | HPN ---
Date/Time of Note Date/Time of Note DATE: 02/23/19 TIME: 21:07 Interval H&P Admission Note Pt. seen H&P reviewed: Systems changes noted below iup at 33 wks 3 days ga, GDMA1, preeclampsia with severe features MICHAEL BENNETT MD Feb 23, 2019 21:08
[2019-02-23] MEDS ORDERED: GENTAMICIN 80 MG/NS (PMX) 50 ML IVPB SCH (21:30)
[2019-02-23] MEDS ORDERED: ONDANSETRON 4 MG INJ IV STA (21:42)
[2019-02-23] MEDS ORDERED: METOCLOPRAMIDE 10 MG INJ IV ONE (22:00)
--- NOTE | 2019-02-23 22:52 | PREAC ---
Date/Time of Note Date/Time of Note DATE: 02/23/19 TIME: 22:51 Anesthesia Eval and Record Evaluation Time Pre-Procedure Interview DATE: 02/23/19 TIME: 22:51 Age 28 Sex female NPO: 8 hrs Preoperative diagnosis with severe pre E Planned procedure c/s Past Medical History Past Medical History: Includes Cardio: HTN Surgery & Anesthesia Issues No known issue Meds Anticoagulation: No Beta Bryant within 24 hr: No Reason Beta Bryant not given: Pt. not on B-Bryant Reported Medications Pnv95/Ferrous Fumarate/FA ( Vitamins Tablet) 1 Each Tablet, 1 EACH PO DAILY, TAB 12/10/18 Current Medications Lactated Ringer's 1,000 ml @ 125 mls/hr Q8H IV Last administered on 02/23/19 13:53; Admin Dose 125 MLS/HR; Start 02/19/19 at 16:09 Prenat Multivit/ [place]/Iron/Folic Ac () 1 tab DAILY PO Last administered on 02/23/19 08:45; Admin Dose 1 TAB; Start 02/20/19 at 09:00 Docusate Sodium (Colace) 100 mg BID PO Last administered on 02/23/19 08:45; Admin Dose 100 MG; Start 02/20/19 at 09:00 Nitrofurantoin Macrocrystals (Macrobid) 100 mg BID PO Last administered on 02/23/19 08:45; Admin Dose 100 MG; Start 02/20/19 at 22:00 Ranitidine HCl (Zantac) 150 mg HS PO Last administered on 02/22/19 22:30; Admin Dose 150 MG; Start 02/20/19 at 22:00 Diagnostic Test (Pha) (Accu-Chek) 1 ea FBSPP XX Last administered on 02/23/19 20:44; Admin Dose 1 EA; Start 02/22/19 at 07:30 Ferrous Sulfate (Ferrous Sulfate (Ec)) 325 mg BID PO Last administered on 02/23/19 08:45; Admin Dose 325 MG; Start 02/22/19 at 21:00 Labetalol HCl (Normodyne) 200 mg Q12 PO Last administered on 02/23/19 08:46; Admin Dose 200 MG; Start 02/22/19 at 22:30 Magnesium Sulfate 500 ml @ 50 mls/hr Q10H IV ; Start 02/23/19 at 20:30 Clindamycin HCl/ Dextrose 50 ml @ 50 mls/hr ONCE IVPB ; Start 02/23/19 at 21:00 Oxytocin/Lactated Ringer's 500 ml @ 125 mls/hr POST IV ; Start 02/23/19 at 21:00 Gentamicin Sulfate 50 ml @ 104 mls/hr ONCE IVPB ; Start 02/23/19 at 21:30; Stop 02/24/19 at 07:00 Meds reviewed: Yes Allergies Coded Allergies: Penicillins (Verified Allergy, Intermediate, rash, 02/11/19) Allergies Reviewed: Yes Labs/Studies Labs Reviewed: Reviewed by anesthesiologist Result Diagram: 02/23/1971302/23/192024 Laboratory Tests 02/23/19 07:14 02/23/19 20:25 Blood Bank Test 02/23/19 20:25 Antibody Screen NEGATIVE Blood Type O POSITIVE test: Positive Pre-procedure Exam Last vitals Vital Signs Date Temp Pulse Resp B/P (MAP) Pulse Ox O2 O2 Flow FiO2 Time Delivery Rate 02/19/19 98.3 122 140/93 14:26 (109) Airway: Adequate mouth opening, Adequate thyromental dist Mallampati: Mallampati II Teeth: Normal Lung: Normal Heart: Normal ASA Physical Status ASA physical status: 3 Emergency: None Planned Anesthetic Neuraxial: Spinal Planned Pain Management Sub-arachniod narcotics Pre-operative Attestations Prior to commencing anesthesia and surgery, the patient was re-evaluated, there was verification of: *The patient's identity *The results of appropriate recent lab work and preoperative vital signs *The above evaluation not changing prior to induction *Anesthetic plan, risk benefits, alternative and complications discussed with patient/family; questions answered; patient/family understands, accepts and wishes to proceed. TRAVON CHAPMAN Feb 23, 2019 22:52
[2019-02-23] MEDS ORDERED: DIPHENHYDRAMINE 50 MG INJ IV PRN ×2 (23:00)
[2019-02-23] MEDS ORDERED: HYDROmorphONE 1 MG/5 ML IV SYRINGE IV PRN ×3 (23:00)
[2019-02-23] MEDS ORDERED: FENTAnyl 50 MCG/ML VIAL IV PRN ×3 (23:00)
[2019-02-23] MEDS ORDERED: METOCLOPRAMIDE 10 MG INJ IV PRN (23:00)
[2019-02-23] MEDS ORDERED: NALOXONE (0.4 MG/ML) INJ IV PRN (23:00)
[2019-02-23] MEDS ORDERED: ONDANSETRON 4 MG INJ IV PRN ×2 (23:00)
[2019-02-23] MEDS ORDERED: ALBUTEROL 0.083% (NEB) 2.5 MG/3 ML AMP HHN PRN (23:00)
[2019-02-23] MEDS ORDERED: KETOROLAC 30 MG INJ IV PRN (23:00)
[2019-02-23] MEDS ORDERED: HYDROmorphONE 0.5 MG/0.5 ML SYG IV PRN ×2 (23:00)
[2019-02-23] MEDS ORDERED: morphine SULFATE/PF (10 MG/10 ML) INJ ONE (23:22)
[2019-02-24] VITALS (12 sets, daily range): BP systolic 114–141; BP diastolic 3–101; PULSE 75–82; RESP 16–20
[2019-02-24] MEDS: LACTATED RINGER'S 1,000 ML IV SCH ×4 (00:09→21:51)
[2019-02-24] MEDS: MAGNESIUM SULFATE 20 GM/500 ML 500 ML IV SCH ×3 (01:30→17:25)
[2019-02-24] MEDS ORDERED: OXYTOCIN 30 UNITS/LR 500 ML IV SCH (01:39)
--- NOTE | 2019-02-24 01:52 | OPPN ---
Date/Time of Note Date/Time of Note DATE: 02/24/19 TIME: 01:49 Operative Report Planned Procedure Procedure date Feb 24, 2019 Procedure(s) primary low transverse CD Performed by see signature line Visual Basic .Net Developer: PHOEBE CORCORAN MD 2nd Visual Basic .Net Developer none Anesthesiologist: TRAVON CHAPMAN Pre-procedure diagnosis iup 33 wks ga, 4 days ga, preeclampsia with severe features [id number] Anesthesia Type: [id number] spinal Post-Procedure Post-procedure diagnosis same Findings a viable female 9/9 weight 2,285 grams. X 2 cord around neck. normal uterus tubes and ovaries Estimated Blood Loss: 500 - 600 mls Specimen(s) none Grafts/Implant(s) none Complication(s) none MICHAEL BENNETT MD Feb 24, 2019 01:52
[2019-02-24] MEDS ORDERED: OXYCODONE/ACETAMINOPHEN (5/325) TAB PO PRN (02:00)
[2019-02-24] MEDS ORDERED: CA GLUCONATE (GM) 10% 10ML INJ IV PRN (02:00)
[2019-02-24] MEDS ORDERED: CLINDAMYCIN 900 MG/D5W (PMX) 50 ML IVPB SCH (02:00)
[2019-02-24] MEDS ORDERED: CARBOPROST 250 MCG INJ IM PRN (02:00)
[2019-02-24] MEDS ORDERED: MISOPROSTOL 200 MCG TAB PR PRN (02:00)
[2019-02-24] MEDS ORDERED: LABETALOL HCL 20MG INJ IV PRN (02:00)
[2019-02-24] MEDS ORDERED: OXYTOCIN 30 UNITS/LR 500 ML IV PRN (02:00)
[2019-02-24] MEDS ORDERED: NACL 0.9% 3 ML SYG IV SCH (02:00)
[2019-02-24] MEDS ORDERED: LANOLIN HPA 1 PKT TOP PRN (02:00)
[2019-02-24] MEDS ORDERED: hydrALAzine 20 MG INJ IV PRN ×2 (02:00)
--- NOTE | 2019-02-24 05:21 | PAC ---
Date/Time of Note Date/Time of Note DATE: 02/24/19 TIME: 05:20 Post-Anesthesia Notes Post-Anesthesia Note Activity: WNL Respiratory function: WNL Cardiovascular function: WNL Mental status: Baseline Pain reasonably controlled: Yes Hydration appropriate: Yes Nausea/Vomiting absent: Yes TRAVON CHAPMAN Feb 24, 2019 05:21
[2019-02-24] MEDS: IBUPROFEN 800 MG TAB PO SCH ×3 (06:00→22:00)
[2019-02-24] MEDS: CLINDAMYCIN 900 MG/D5W (PMX) 50 ML IVPB SCH ×3 (06:13→21:44)
[2019-02-24] MEDS: ACCU-CHEK XX SCH ×4 (08:05→20:05)
[2019-02-24] MEDS: NITROFURANTOIN (SR) 100 MG CAP PO SCH ×2 (09:00→20:57)
[2019-02-24] MEDS ORDERED: PHENYLephrine (100 MCG/ML) 10ML SYG IV ONE (15:40)
[2019-02-24] MEDS ORDERED: EPHEDrine 25 MG/5 ML SYG IV ONE (15:40)
[2019-02-24] MEDS: KETOROLAC 30 MG INJ IV PRN ×2 (17:22→21:57)
[2019-02-24] MEDS ORDERED: LABETALOL 200 MG TAB GTB SCH (21:00)
[2019-02-24] MEDS ORDERED: PETROLATUM 5 GM OINT TOP ONE (21:27)
--- NOTE | 2019-02-24 22:27 | OPR ---
DATE OF OPERATION: 02/24/2019 PRIMARY DIAGNOSES: 1. Intrauterine at 33 weeks and 4 days' gestational age. 2. Preeclampsia with severe features. POSTOPERATIVE DIAGNOSES: 1. Intrauterine at 33 weeks and 4 days' gestational age. 2. Preeclampsia with severe features. PROCEDURE: Primary low transverse delivery. SURGEON: Dr. Abdelrahman Tavares AIR DEODORIZER SERVICER: Dr. Phoebe Villareal ANESTHESIA: Spinal. COMPLICATION: None. ESTIMATED BLOOD LOSS: 500 mL FINDINGS: A viable female, 9 and 9 respectively at 1 and 5 minutes, weight 2285 grams, x2 cord around the neck noted. Normal uterus, tubes and ovaries. DESCRIPTION OF PROCEDURE: After explaining the risks, benefits and alternatives, the patient had the consent signed in the chart. The patient was taken to the operating room where spinal anesthesia wa s found to be adequate. She was then prepared and draped in the normal sterile fashion in the dorsal supine position with a leftward tilt. A Pfannenstiel skin incision was then made with a scalpel and carried to the underlying layer of the fascia. The fascia was then incised in the midline and the incision was extended laterally with the Duran scissors. The superior aspect of the fascial incision was grasped with the Natalia clamps, eleva juan david and the underlying rectus muscles dissected off bluntly. Attention was then turned to the inferi or aspect of the incision which in similar fashion was grasped, tented up with Natalia clamps and the rectus muscles dissected off bluntly. The rectus muscles were then in the midline, periton eum identified, tented up, entered sharply with Metzenbaum scissors. The peritoneal incision was ext ended superiorly with good visualization of bladder. The bladder blade was then inserted and the low er uterine segment incised in transverse fashion with a scalpel. The uterine incision was extended l aterally. The bladder blade was removed and the 's head delivered atraumatically. The nose an d mouth were suctioned and cord clamped and cut. The infant was handed off to waiting NICU team. Th e placenta was then removed. The uterus exteriorized and cleared of all clots and debris. The uterine incision was repaired with 1-0 chromic in a running locked fashion. A second layer of same suture was used for imbrication and obtained excellent hemostasis. The uterus was returned to the abdomen. The gutters were cleared of all clots. The peritoneum and rectus abdominis muscles were reapproximated with 3-0 Vicryl in an int errupted fashion. The fascia was reapproximated with 0 Vicryl in a running fashion. The subcutaneou s tissue was reapproximated with 2-0 plain gut in a running fashion. The skin was closed with absorb able lise. The patient tolerated the procedure well. Sponge, lap and needle counts were correct. The patient was taken to the recovery room in stable condition. Dictated By: ABDELRAHMAN DA SILVA/MIKAYLA Conf#: [id number] DID#: [id number] CC: PHOEBE VILLAREAL MD;*End*
[2019-02-25] VITALS (20 sets, daily range): BP systolic 110–145; BP diastolic 66–104; PULSE 73–94; RESP 16–19
[2019-02-25] MEDS: MAGNESIUM SULFATE 20 GM/500 ML 500 ML IV SCH (02:30)
[2019-02-25] MEDS: IBUPROFEN 800 MG TAB PO SCH ×3 (04:37→19:52)
[2019-02-25] MEDS: ACCU-CHEK XX SCH ×4 (07:30→20:05)
[2019-02-25] MEDS: OXYCODONE/ACETAMINOPHEN (5/325) TAB PO PRN ×2 (08:36→23:05)
[2019-02-25] MEDS: NITROFURANTOIN (SR) 100 MG CAP PO SCH ×2 (10:56→21:37)
--- NOTE | 2019-02-25 19:50 | QN ---
Documentation Comment progress note pod 1 patient was seen and evaluated aao x 3, patient had a fall earlier today had ct scan negative finding no headache, n/v sob, visual changes, epigastric pain vs stable afebile HEENT normal Neck supple Lung cta b/l ab incision clean/dry no distention, nt extremity no edema no calf tenderness a/ sp cd pod 1 stable afebrile p/ iron supplement preeclamptic precautions MICHAEL BENNETT MD Feb 25, 2019 19:50
[2019-02-25] MEDS: FERROUS SULFATE (EC) 325 MG TAB PO SCH (21:37)
[2019-02-26 04:15] VITALS: BP 148/90; PULSE 68; RESP 19
[2019-02-26] MEDS: IBUPROFEN 800 MG TAB PO SCH ×3 (05:15→22:14)
[2019-02-26] MEDS: ACCU-CHEK XX SCH ×4 (07:30→20:05)
[2019-02-26 08:00] VITALS: BP 147/97; PULSE 80; RESP 18
--- NOTE | 2019-02-26 08:09 | QN ---
Documentation Comment progress note pod 2 patient was seen and evaluated aao x 3, patient had a fall earlier today had ct scan negative finding no headache, n/v sob, visual changes, epigastric pain vs stable afebile HEENT normal Neck supple Lung cta b/l ab incision clean/dry/intact no distention, nt extremity no edema no calf tenderness a/ sp cd pod 2 stable afebrile p/ encourage ambulation preeclamptic precautions MICHAEL BENNETT MD Feb 26, 2019 08:09
[2019-02-26] MEDS: FERROUS SULFATE (EC) 325 MG TAB PO SCH ×2 (08:54→22:14)
[2019-02-26] MEDS: NITROFURANTOIN (SR) 100 MG CAP PO SCH ×2 (08:54→22:14)
[2019-02-26] MEDS: OXYCODONE/ACETAMINOPHEN (5/325) TAB PO PRN ×2 (08:54→13:11)
[2019-02-26 16:00] VITALS: BP 161/107; PULSE 73; RESP 18
[2019-02-26 17:40] VITALS: BP 158/103; PULSE 86
[2019-02-26] MEDS: LABETALOL 100 MG TAB PO SCH ×2 (17:41→23:45)
[2019-02-26 20:00] VITALS: BP 126/91; PULSE 79; RESP 20
[2019-02-26 23:45] VITALS: BP 134/95; PULSE 78
[2019-02-27 04:45] VITALS: BP 136/98; PULSE 89; RESP 19
[2019-02-27] MEDS: OXYCODONE/ACETAMINOPHEN (5/325) TAB PO PRN ×2 (04:54→08:41)
[2019-02-27] MEDS: IBUPROFEN 800 MG TAB PO SCH ×2 (06:03→14:30)
[2019-02-27] MEDS: ACCU-CHEK XX SCH ×2 (07:30→10:05)
[2019-02-27 08:00] VITALS: BP 141/95; PULSE 72; RESP 18
[2019-02-27] MEDS: FERROUS SULFATE (EC) 325 MG TAB PO SCH (08:19)
[2019-02-27] MEDS: LABETALOL 100 MG TAB PO SCH (08:19)
[2019-02-27] MEDS: NITROFURANTOIN (SR) 100 MG CAP PO SCH (08:19)
--- NOTE | 2019-02-27 21:06 | DS ---
Date/Time of Note Date/Time of Note DATE: 02/27/19 TIME: 21:00 Obstetrical Discharge Record Final Diagnosis Final Diagnosis: delivered Other Final Diagnosis Hematology - 72 Hrs Test 02/25/19 07:51 Hematocrit 29.9 % (37.0-47.0) L Hemoglobin 10.0 g/dl (12.0-16.0) L Mean Corpuscular Hemoglobin 30.7 pg (29.0-33.0) Mean Corpuscular Hemoglobin Concent 33.4 g/dl (32.0-37.0) Mean Corpuscular Volume 91.7 fl (82.0-101.0) Mean Platelet Volume 10.1 fl (7.4-10.4) Platelet Count 281 10^3/UL (140-415) # Red Blood Count 3.26 10^6/ul (4.20-5.40) L Red Cell Distribution Width 14.0 % (11.5-14.5) White Blood Count 11.3 10^3/ul (4.8-10.8) H Chemistry Test 02/25/19 04:41 02/25/19 07:31 02/25/19 07:51 02/25/19 10:46 Bedside 97 93 157 Glucose mg/dL (70-220) mg/dL (70-220) mg/dL (70-220) Alanine 225 Aminotransferas IU/L (13-69) e (ALT/SGPT) H Test 02/25/19 10:47 02/25/19 14:47 02/25/19 19:44 02/26/19 09:02 Bedside 116 125 103 73 Glucose mg/dL (70-220) mg/dL (70-220) mg/dL (70-220) mg/dL (70-220) Test 02/26/19 13:06 02/26/19 15:52 02/26/19 19:45 02/27/19 08:25 Bedside 98 104 77 70 Glucose mg/dL (70-220) mg/dL (70-220) mg/dL (70-220) mg/dL (70-220) Test 02/27/19 11:29 Bedside 85 Glucose mg/dL (70-220) Postop day #3 Status post primary 1. Intrauterine at 33 weeks and 4 days' gestational age. 2. Preeclampsia with severe features. Patient stable and afebrile Patient is ambulating, tolerating regular diet, voiding and positive flatus Vital signs stable Abdomen soft, fundus firm Incision clean, dry, intact Extremities nontender Assessment and plan Patient stable and doing well Plan to discharge home Patient instructed to follow-up with GRADING MACHINE OPERATOR in 2 and 6 weeks Section Section: Primary Complications Gestational Diabetes, Preg induced Hypertension Condition on Discharge Physical Assessment Last Vitals: VS - Last 72 Hours, by Label Date Temp Pulse Resp B/P (MAP) Pulse Ox O2 O2 Flow FiO2 Time Delivery Rate 02/27/19 97.9 72 18 141/95 Room Air 08:00 (110) 02/27/19 98.8 89 19 136/98 Room Air 04:45 (111) 02/26/19 78 134/95 23:45 (108) 02/26/19 98.3 79 20 126/91 Room Air 20:00 (103) 02/26/19 86 158/103 17:40 (121) 02/26/19 98.1 73 18 161/107 Room Air 16:00 (125) 02/26/19 98.1 80 18 147/97 Room Air 08:00 (114) 02/26/19 98.2 68 19 148/90 Room Air 04:15 (109) 02/25/19 98.4 73 19 143/88 Room Air 21:30 (106) 02/25/19 94 127/66 18:51 (86) 02/25/19 78 143/103 Room Air 17:46 (116) 02/25/19 84 142/94 Room Air 17:00 (110) 02/25/19 98.5 73 143/103 Room Air 16:00 (116) 02/25/19 89 139/104 15:00 (116) 02/25/19 84 142/94 14:00 (110) 02/25/19 82 139/82 Room Air 13:00 (101) 02/25/19 82 140/100 100 12:00 (113) 02/25/19 80 112/86 Room Air 10:50 (95) 02/25/19 85 110/85 10:20 (93) 02/25/19 82 18 124/89 100 Room Air 10:00 (101) 02/25/19 82 18 136/88 100 09:30 (104) 02/25/19 77 126/79 08:45 (95) 02/25/19 91 131/81 Room Air 08:35 (98) 02/25/19 75 127/81 08:15 (96) 02/25/19 97.8 79 18 131/81 Room Air 08:00 (98) 02/25/19 78 145/102 07:45 (116) 02/25/19 97.5 84 124/94 Room Air 07:19 (104) 02/25/19 98.3 80 16 130/79 Room Air 04:00 (96) 02/24/19 97.9 75 18 114/3 (40) 96 Room Air 23:44 Voiding: Yes Bowel Movement: Yes Breast: Soft, non-tender Fundus: Firm Calf Tenderness: No Patient Condition: Good Copies To: CC: MICHAEL BENNETT MD ; ANDERSON VASQUEZ MD Feb 27, 2019 21:06
--- NOTE | 2019-02-28 16:34 | DELSUM ---
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 Babies in Womb: 1 Attempted: No Labor Anesthesia: None LABOR INFORMATION Reason for Induction: Not Applicable Oxytocin: N/A Group B Beta Strep: Not Done Antibiotics # of Doses: 2 Antibiotics Time of Last Dose: 02/23/2019 23:40 Steroids Given: Full Course; >24Hs before Delivery Reason Steroids Not Administered: Not Applicable MEMBRANES Membranes Rupture Method: Artificial Rupture of Membranes: 02/24/2019 00:02 Length of Rupture (hr): 0.00 Amniotic Fluid Color: Clear Amniotic Fluid Amount: Moderate Amniotic Fluid Odor: None STAGES OF LABOR Stage 3 hr: 0 Stage 3 min: 2 CSECTION DELIVERY Primary Indication: Severe PIH, Unfavor Cervix CSection Urgency: Non Elective CSection Incidence: Primary Labor: No Labor Elective: Nonelective CSection Incision: Lower Uterine Transverse BABY A INFORMATION Infant Delivery Date/Time: 02/24/2019 00:02 Method of Delivery: Born in Route : No : N/A Forceps: N/A Vacuum Extraction: N/A Shoulder Dystocia : No SHOULDER DYSTOCIA BABY A Delivery Date/Time: 02/24/2019 00:02 PRESENTATION/POSITION BABY A Presentation: Cephalic Cephalic Presentation: Vertex Vertex Position: Left Occipital Anterior Breech Presentation: N/A PLACENTA INFORMATION BABY A Placenta Delivery Time : 02/24/2019 00:04 Placenta Method of Delivery: Manual Removal Placenta Status: Delivered SCORES BABY A Heart Rate 1 min: >100 bpm Resp Effort 1 min: Good Cry Reflex Irritability 1 min: Cough/Sneeze/Pulls Away Muscle Tone 1 min: Active Motion Color 1 min: Body [place], Extremit Blue Resuscitation Effort 1 min: Tactile Stimulation SCORE 1 MIN: 9 Heart Rate 5 min: >100 bpm Resp Effort 5 min: Good Cry Reflex Irritability 5 min: Cough/Sneeze/Pulls Away Muscle Tone 5 min: Active Motion Color 5 min: Body [place], Extremit Blue Resuscitation Effort 5 min: Tactile Stimulation SCORE 5 MIN: 9 INFORMATION BABY A Gestational Age at Delivery: 33.3 Gestational Status: - <34 Weeks Infant Outcome : Liveborn Infant Condition : Stable Sex: Female IDENTIFICATION/MEDS BABY A ID Band Number: [id number] ID Band Location: Right Leg; Left Arm Sensor Applied: No Vitamin K Given : Not Given Erythromycin Given: Not Given WEIGHT/LENGTH BABY A Birthweight (gm): 2285 Weight (lb): 5 Weight (oz): 1 Length (in): 18.00 Infant Length (cm): 45.72 CORD INFORMATION BABY A No. Cord Vessels: 3 Nuchal Cord : Around Neck x2, Loose Cord Blood Taken: Yes Suction: Mouth; Nose ASSESSMENT BABY A Complications: None Physical Findings at Delivery: Within Normal Limits Respirations: Appears Normal Online Publisher/ALS Called : Yes Infant Care By: GEO Orantes RN Transferred To: NICU
== END 2019-02-27 16:33 | disposition home or self-care (01) | DRG 786 ==
LOC: OBT 13:46 → L-D 13:47 → OBT 15:50 → L-D 16:26 → PP1 02-20 22:58 → L-D 02-23 20:52 → PP1 02-24 18:01
PROVIDERS: ADMIT Obstetrics & Gynecology; ATTEND Obstetrics & Gynecology
PROC: 10D00Z1 Extraction of Products of Conception, Low, Open Approach (ICD-10-PCS; principal; 2019-02-24)
DX: O60.13X0 Preterm labor second trimester with preterm delivery third trimester, not applicable or unspecified (principal); O14.13 Severe pre-eclampsia, third trimester; O24.419 Gestational diabetes mellitus in pregnancy, unspecified control; Z3A.33 33 weeks gestation of pregnancy; Z37.0 Single live birth
CPT/HCPCS: 70450; 76815; 76818; 80053; 80202; 81001; 82962; 83036; 83735; 84450; 84460; 84560; 85025; 85384; 85610; 85730; 86592; 86706; 86762; 86850; 86900; 86901; 87086; 99464; G0463; J0702; J1580; J1885; J2274; J2370; J2405; J2590; J2765; J3010; J3370; J3475; J7120

== ENCOUNTER 2019-03-03 20:00 | Inpatient (IN) | payer MEDICAID ==
[~2019-03-03] VITALS: Ht 157.5 cm; Wt 69.4 kg
[2019-03-03 20:27] VITALS: BP 154/114; PULSE 99; RESP 16
[2019-03-03] MEDS ORDERED: METHYLERGONOVINE 0.2 MG INJ IM PRN (21:00)
[2019-03-03] MEDS ORDERED: LABETALOL HCL 20MG INJ IV ONE (21:00)
[2019-03-03] MEDS ORDERED: MAGNESIUM SULFATE 4 GM/100 ML 100 ML IV SCH (21:00)
[2019-03-03] MEDS ORDERED: CARBOPROST 250 MCG INJ IM PRN (21:00)
[2019-03-03] MEDS: LABETALOL 200 MG TAB PO SCH (21:00)
[2019-03-03] MEDS ORDERED: OXYTOCIN 30 UNITS/LR 500 ML IV PRN (21:00)
[2019-03-03] MEDS ORDERED: MISOPROSTOL 200 MCG TAB PR PRN (21:00)
[2019-03-03] MEDS ORDERED: CA GLUCONATE (GM) 10% 10ML INJ IV PRN (21:00)
[2019-03-03] MEDS: LACTATED RINGER'S 1,000 ML IV SCH (21:38)
[2019-03-03] MEDS: MAGNESIUM SULFATE 20 GM/500 ML 500 ML IV SCH (22:15)
[2019-03-03 22:30] VITALS: BP 142/115; PULSE 85; RESP 18
[2019-03-03 23:08] VITALS: BP 133/96; PULSE 83; RESP 19
[2019-03-03 23:30] VITALS: BP 124/87; PULSE 76; RESP 18
[2019-03-04] VITALS (22 sets, daily range): BP systolic 103–149; BP diastolic 74–104; PULSE 79–98; RESP 14–19
[2019-03-04] MEDS: ACETAMINOPHEN 325 MG TAB PO PRN ×3 (02:14→19:16)
--- NOTE | 2019-03-04 05:34 | TRIAGE ---
OB Triage Datetime Report Generated by CPN: 03/04/2019 05:32 Datetime: 03/03/2019 21:39 Stage of : OB Triage Datetime: 03/03/2019 20:39 Stage of : OB Triage Datetime: 03/03/2019 20:18 Stage of : OB Triage Pain Assessment Pain Scale: 7 Pain Presence: Constant Pain Type: Pressure; Ache Pain Location: Head Datetime: 03/03/2019 20:05 Time of Arrival: 03/03/2019 19:50 EGA: 40.0 Arrived By: Wheelchair Arrived From: Home Chief Complaint: Pt 7 days PP w/ hx delivery for PIH at 33+wks to OB triage w/ c/o LOW and dizziness since yesterday. States was takin BPs at home and elevated Patient Complaints: Headache; Dizziness Time Provider Notified: 03/03/2019 20:39 Provider Notified: Dr Tavares Initial Plan: VS Datetime: 02/24/2019 02:45 Stage of : Recovery Pain Presence: None/Denies Datetime: 02/24/2019 02:30 Stage of : Recovery Temperature Route: Oral Pain Presence: None/Denies Datetime: 02/24/2019 02:15 Stage of : Recovery Pain Presence: None/Denies Datetime: 02/24/2019 02:00 Stage of : Recovery Pain Presence: None/Denies Datetime: 02/24/2019 01:45 Stage of : Recovery Pain Presence: None/Denies Datetime: 02/24/2019 01:30 Stage of : Recovery Temperature Route: Oral Pain Presence: None/Denies Datetime: 02/24/2019 01:15 Stage of : Recovery Pain Presence: None/Denies Datetime: 02/24/2019 01:00 Stage of : Recovery Pain Presence: None/Denies Datetime: 02/24/2019 00:45 Stage of : Recovery Pain Presence: None/Denies Datetime: 02/24/2019 00:35 Stage of : Recovery Temperature Route: Oral Pain Presence: None/Denies Datetime: 02/23/2019 20:44 Bedside Blood Glucose: 85 Datetime: 02/23/2019 20:13 Comments: ULTRASOUND AT BEDSIDE. Datetime: 02/23/2019 19:40 Stage of : Antepartum Assessment Type: Ongoing Assessment Maternal Assessment Level of Consciousness: Fully Conscious DTR's/Clonus: DTRs 2+; No Clonus Headache: Denies Blurred Vision: No Respiratory Effort: Unlabored; Regular Rhythm; Equal Expansion Breath Sounds, Left: Clear and Equal Breath Sounds, Right: Clear and Equal Nausea/Vomiting: Denies RUQ Epigastric Pain: Denies Lower Extremities Edema: None Degree: None Upper Extremities Edema: None Degree: None Facial Edema: None Fall Risk Assessment History of Falling: (0) No Secondary Diagnosis: (0) No Ambulatory Aid: (0) Bedrest/Nurse Assist IV Therapy: (0) No Gait: (0) Normal/Bedrest/Immobile Mental Status: (0) Oriented to Own Ability Fall Score: 0 Fall Risk Score Definition: No Risk: No action required Datetime: 02/23/2019 19:39 Stage of : Antepartum Temperature Route: Oral Pain Presence: None/Denies (Annotations: PT DENIES BLURRED VISION,LOW OR EPIGASTRIC PAIN.) Datetime: 02/23/2019 19:30 Comments: 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 Datetime: 02/23/2019 19:00 Maternal Assessment Level of Consciousness: Fully Conscious Headache: Denies Blurred Vision: No Nausea/Vomiting: Denies RUQ Epigastric Pain: Denies Facial Edema: None Labor Evaluation Frequency: x6 Monitor Mode: External Duration (sec)2399: 50-70 Quality: Mild Pattern: Normal: <= 5 Contractions in 10 Minutes Resting Tone [place]: Relaxed Heart Rate FHR Baseline Rate: 135 Monitor Mode: External US FHR Baseline Changes: No Baseline Change Variability: Moderate 6-25 bpm Accelerations: 15X15 Decelerations: None Category: Category I Pain Assessment Pain Scale: 0 Pain Presence: None/Denies Pain Type: N/A Pain Goal: 3 Vaginal Exam Membrane Status: Intact Datetime: 02/23/2019 17:52 Stage of : Antepartum Pain Assessment Pain Scale: 0 Pain Presence: None/Denies Pain Goal: 3 Datetime: 02/23/2019 17:45 Comments: IV re-started 20 G Datetime: 02/23/2019 17:40 Comments: Pt back to bed from shower Datetime: 02/23/2019 16:47 Labor Evaluation Frequency: x3 Monitor Mode: External Duration (sec)2399: 30-50 Quality: Mild Pattern: Normal: <= 5 Contractions in 10 Minutes Resting Tone [place]: Relaxed Heart Rate FHR Baseline Rate: 140 Monitor Mode: External US FHR Baseline Changes: No Baseline Change Variability: Moderate 6-25 bpm Accelerations: 15X15 Decelerations: None Category: Category I Comments: Pt up to shower. IV d/c, tip intact, pt tolerated procedure. Pain Assessment Pain Scale: 0 Pain Presence: None/Denies Pain Type: N/A Pain Goal: 3 Datetime: 02/23/2019 16:00 Labor Evaluation Frequency: x2 Monitor Mode: External Duration (sec)2399: 40-60 Quality: Mild Pattern: Normal: <= 5 Contractions in 10 Minutes Resting Tone [place]: Relaxed Heart Rate FHR Baseline Rate: 135 Monitor Mode: External US FHR Baseline Changes: No Baseline Change Variability: Moderate 6-25 bpm Accelerations: 15X15 Decelerations: None Category: Category I Pain Assessment Pain Scale: 0 Pain Presence: None/Denies Pain Type: N/A Pain Goal: 3 Datetime: 02/23/2019 15:58 Stage of : Antepartum Temperature Route: Oral Pain Assessment Pain Scale: 0 Pain Presence: Intermittent Pain Type: N/A Pain Goal: 3 Datetime: 02/23/2019 15:53 Comments: Pt back to bed Datetime: 02/23/2019 15:50 Comments: Pt walking by the bed Datetime: 02/23/2019 15:00 Labor Evaluation Frequency: 0 Monitor Mode: External Duration (sec)2399: 0 Resting Tone [place]: Relaxed Heart Rate FHR Baseline Rate: 140 Monitor Mode: External US FHR Baseline Changes: No Baseline Change Variability: Moderate 6-25 bpm Accelerations: 15X15 Decelerations: None Category: Category I Pain Assessment Pain Scale: 0 Pain Presence: None/Denies Pain Type: N/A Pain Goal: 3 Datetime: 02/23/2019 14:51 Bedside Blood Glucose: 88 Datetime: 02/23/2019 14:48 Comments: Right tilt Datetime: 02/23/2019 14:00 Maternal Assessment Level of Consciousness: Fully Conscious Headache: Denies Blurred Vision: No Nausea/Vomiting: Denies RUQ Epigastric Pain: Denies Facial Edema: None Labor Evaluation Frequency: x2 Monitor Mode: External Duration (sec)2399: 60-90 Quality: Mild Pattern: Normal: <= 5 Contractions in 10 Minutes Resting Tone [place]: Relaxed Heart Rate FHR Baseline Rate: 140 Monitor Mode: External US FHR Baseline Changes: No Baseline Change Variability: Moderate 6-25 bpm Accelerations: 15X15 Decelerations: None Category: Category I Pain Assessment Pain Scale: 0 Pain Presence: None/Denies Pain Type: N/A Pain Goal: 3 Vaginal Exam Membrane Status: Intact Datetime: 02/23/2019 13:47 Comments: Right tilt Datetime: 02/23/2019 13:40 Comments: Left lateral Datetime: 02/23/2019 13:00 Labor Evaluation Frequency: x4 Monitor Mode: External Duration (sec)2399: 30-90 Quality: Mild Pattern: Normal: <= 5 Contractions in 10 Minutes Resting Tone [place]: Relaxed Heart Rate FHR Baseline Rate: 135 Monitor Mode: External US FHR Baseline Changes: No Baseline Change Variability: Moderate 6-25 bpm Accelerations: 15X15 Decelerations: None Category: Category I Pain Assessment Pain Scale: 0 Pain Presence: None/Denies Pain Type: N/A Pain Goal: 3 Datetime: 02/23/2019 12:52 Comments: Dr. Tavares was called to let him know of pt's CBC and CMP results. MD stated "I saw th e results, I'm waiting for perinatologist to review and put a note on pt's chart" Datetime: 02/23/2019 12:47 Stage of : Antepartum Datetime: 02/23/2019 12:00 Labor Evaluation Frequency: x3 Monitor Mode: External Duration (sec)2399: 50-70 Quality: Mild Pattern: Normal: <= 5 Contractions in 10 Minutes Resting Tone [place]: Relaxed Heart Rate FHR Baseline Rate: 135 Monitor Mode: External US FHR Baseline Changes: No Baseline Change Variability: Moderate 6-25 bpm Accelerations: 15X15 Decelerations: None Category: Category I Pain Assessment Pain Scale: 0 Pain Presence: None/Denies Pain Type: N/A Pain Goal: 3 Vaginal Exam Membrane Status: Intact Datetime: 02/23/2019 11:51 Stage of : Antepartum Temperature Route: Oral Pain Assessment Pain Scale: 0 Pain Presence: None/Denies Pain Type: N/A Pain Goal: 3 Datetime: 02/23/2019 11:22 Bedside Blood Glucose: 79 Datetime: 02/23/2019 11:00 Monitor Mode: External Resting Tone [place]: Relaxed Contraction Comments: Pt denies any cramping or discomfort Heart Rate FHR Baseline Rate: 135 Monitor Mode: External US FHR Baseline Changes: No Baseline Change Variability: Moderate 6-25 bpm Pain Assessment Pain Scale: 0 Pain Presence: None/Denies Pain Type: N/A Pain Goal: 3 Datetime: 02/23/2019 10:00 Labor Evaluation Frequency: x2 Monitor Mode: External Duration (sec)2399: 40-70 Quality: Mild Pattern: Normal: <= 5 Contractions in 10 Minutes Resting Tone [place]: Relaxed Heart Rate FHR Baseline Rate: 135 Monitor Mode: External US FHR Baseline Changes: No Baseline Change Variability: Moderate 6-25 bpm Accelerations: 15X15 Pain Assessment Pain Scale: 0 Pain Presence: None/Denies Pain Type: N/A Pain Goal: 3 Datetime: 02/23/2019 09:47 Comments: U/S progress Datetime: 02/23/2019 09:01 Comments: Pt having breakfast Datetime: 02/23/2019 09:00 Maternal Assessment Level of Consciousness: Fully Conscious Headache: Denies Blurred Vision: No Nausea/Vomiting: Denies RUQ Epigastric Pain: Denies Facial Edema: None Labor Evaluation Frequency: x2 Monitor Mode: External Duration (sec)2399: 50-80 Quality: Mild Pattern: Normal: <= 5 Contractions in 10 Minutes Resting Tone [place]: Relaxed Heart Rate FHR Baseline Rate: 135 Monitor Mode: External US FHR Baseline Changes: No Baseline Change Variability: Moderate 6-25 bpm Accelerations: 15X15 Decelerations: None Category: Category I Pain Assessment Pain Scale: 0 Pain Presence: None/Denies Pain Type: N/A Pain Goal: 3 Vaginal Exam Membrane Status: Intact Datetime: 02/23/2019 08:43 Bedside Blood Glucose: 73 Datetime: 02/23/2019 08:00 Assessment Type: Ongoing Assessment Maternal Assessment Level of Consciousness: Fully Conscious Maternal Assessment Level of Consciousness: Fully Conscious DTR's/Clonus: DTRs 2+ DTR's/Clonus: DTRs 2+; No Clonus Headache: Denies Headache: Denies Blurred Vision: No Blurred Vision: No Respiratory Effort: Unlabored; Regular Rhythm; Equal Expansion Breath Sounds, Left: Clear and Equal Breath Sounds, Right: Clear and Equal Nausea/Vomiting: Denies Nausea/Vomiting: Denies RUQ Epigastric Pain: Denies RUQ Epigastric Pain: Denies Lower Extremities Edema: None Upper Extremities Edema: None Facial Edema: None Facial Edema: None Fall Risk Assessment History of Falling: (0) No Secondary Diagnosis: (0) No Ambulatory Aid: (0) Bedrest/Nurse Assist Gait: (0) Normal/Bedrest/Immobile Mental Status: (0) Oriented to Own Ability Labor Evaluation Frequency: x4 Monitor Mode: External Duration (sec)2399: 30-60 Quality: Mild Pattern: Normal: <= 5 Contractions in 10 Minutes Resting Tone [place]: Relaxed Heart Rate FHR Baseline Rate: 135 Monitor Mode: External US FHR Baseline Changes: No Baseline Change Variability: Moderate 6-25 bpm Accelerations: 15X15 Decelerations: None Category: Category I Pain Assessment Pain Scale: 0 Pain Presence: None/Denies Pain Type: N/A Pain Goal: 3 Vaginal Exam Membrane Status: Intact Datetime: 02/23/2019 07:35 Stage of : Antepartum Temperature Route: Oral Pain Assessment Pain Scale: 0 Pain Presence: Intermittent Pain Goal: 3 Datetime: 02/23/2019 06:00 Labor Evaluation Frequency: X3 Monitor Mode: External Duration (sec)2399: 40-90 Quality: Mild Resting Tone [place]: Relaxed Heart Rate FHR Baseline Rate: 140 Monitor Mode: External US Variability: Moderate 6-25 bpm Accelerations: 15X15 Decelerations: None Category: Category I Pain Presence: None/Denies Datetime: 02/23/2019 05:00 Labor Evaluation Frequency: OCCASIONAL Monitor Mode: External Duration (sec)2399: 40-50 Quality: Mild Resting Tone [place]: Relaxed Heart Rate FHR Baseline Rate: 135 Monitor Mode: External US Variability: Moderate 6-25 bpm Accelerations: 15X15 Decelerations: None Category: Category I Pain Presence: None/Denies Datetime: 02/23/2019 04:00 Labor Evaluation Frequency: 0 Monitor Mode: External Resting Tone [place]: Relaxed Heart Rate FHR Baseline Rate: 135 Pain Presence: None/Denies Datetime: 02/23/2019 03:00 Labor Evaluation Frequency: 0 Monitor Mode: External Resting Tone [place]: Relaxed Heart Rate FHR Baseline Rate: 130 Datetime: 02/23/2019 02:00 Labor Evaluation Frequency: X1 Monitor Mode: External Duration (sec)2399: 80 Quality: Mild Resting Tone [place]: Relaxed Heart Rate FHR Baseline Rate: 140 Monitor Mode: External US Variability: Moderate 6-25 bpm Accelerations: 15X15 Decelerations: None Category: Category I Pain Presence: None/Denies Datetime: 02/23/2019 01:00 Labor Evaluation Frequency: X1 Monitor Mode: External Duration (sec)2399: 50 Quality: Mild Resting Tone [place]: Relaxed Heart Rate FHR Baseline Rate: 135 Monitor Mode: External US Variability: Moderate 6-25 bpm Accelerations: 15X15 Decelerations: None Pain Presence: None/Denies Datetime: 02/23/2019 00:00 Labor Evaluation Frequency: X1 Monitor Mode: External Duration (sec)2399: 90 Quality: Mild Resting Tone [place]: Relaxed Heart Rate FHR Baseline Rate: 145 Monitor Mode: External US Variability: Moderate 6-25 bpm Accelerations: 15X15 Decelerations: None Category: Category I Pain Presence: None/Denies Datetime: 02/22/2019 23:00 Labor Evaluation Frequency: X2 Monitor Mode: External Duration (sec)2399: 40-60 Quality: Mild Resting Tone [place]: Relaxed Heart Rate FHR Baseline Rate: 145 Comments: LOSS OF CONTACT PT TURNED TO THE SIDE. Pain Presence: None/Denies Datetime: 02/22/2019 22:00 Labor Evaluation Frequency: X2 Monitor Mode: External Duration (sec)2399: 40-60 Quality: Mild Resting Tone [place]: Relaxed Heart Rate FHR Baseline Rate: 140 Monitor Mode: External US Variability: Moderate 6-25 bpm Accelerations: 15X15 Decelerations: None Category: Category I Pain Presence: None/Denies Datetime: 02/22/2019 21:00 Labor Evaluation Frequency: X1 Monitor Mode: External Duration (sec)2399: 40 Quality: Mild Resting Tone [place]: Relaxed Heart Rate FHR Baseline Rate: 145 Monitor Mode: External US Variability: Moderate 6-25 bpm Accelerations: 15X15 Decelerations: None Category: Category I Pain Presence: None/Denies Datetime: 02/22/2019 20:00 Labor Evaluation Frequency: OCCASIONAL Monitor Mode: External Duration (sec)2399: 40-70 Quality: Mild Resting Tone [place]: Relaxed Heart Rate FHR Baseline Rate: 145 Monitor Mode: External US Variability: Moderate 6-25 bpm Accelerations: 15X15 Decelerations: None Category: Category I Pain Presence: None/Denies Datetime: 02/22/2019 19:24 Assessment Type: Ongoing Assessment Maternal Assessment Level of Consciousness: Fully Conscious DTR's/Clonus: DTRs 2+; No Clonus Headache: Denies Blurred Vision: No Respiratory Effort: Unlabored; Regular Rhythm; Equal Expansion Breath Sounds, Left: Clear and Equal Breath Sounds, Right: Clear and Equal Nausea/Vomiting: Denies RUQ Epigastric Pain: Denies Lower Extremities Edema: None Degree: None Upper Extremities Edema: None Degree: None Facial Edema: None Fall Risk Assessment History of Falling: (0) No Secondary Diagnosis: (0) No Ambulatory Aid: (0) Bedrest/Nurse Assist IV Therapy: (0) No Gait: (0) Normal/Bedrest/Immobile Mental Status: (0) Oriented to Own Ability Fall Score: 0 Fall Risk Score Definition: No Risk: No action required Datetime: 02/22/2019 17:42 Labor Evaluation Frequency: 3/60 Duration (sec)2399: 60-90 Quality: Mild Pattern: Normal: <= 5 Contractions in 10 Minutes Resting Tone [place]: Relaxed Heart Rate FHR Baseline Rate: 145 Monitor Mode: External US FHR Baseline Changes: No Baseline Change Variability: Moderate 6-25 bpm Accelerations: 15X15 Decelerations: None Category: Category I Datetime: 02/22/2019 16:42 Labor Evaluation Frequency: 2/60 Monitor Mode: External Duration (sec)2399: 50-60 Quality: Mild Pattern: Normal: <= 5 Contractions in 10 Minutes Resting Tone [place]: Relaxed Heart Rate FHR Baseline Rate: 145 FHR Baseline Changes: No Baseline Change Variability: Moderate 6-25 bpm Accelerations: 15X15 Decelerations: None Category: Category I Datetime: 02/22/2019 16:08 Stage of : Antepartum Temperature Route: Oral Datetime: 02/22/2019 15:42 Labor Evaluation Frequency: 3/60 Duration (sec)2399: 60-90 Quality: Mild Pattern: Normal: <= 5 Contractions in 10 Minutes Resting Tone [place]: Relaxed Heart Rate FHR Baseline Rate: 145 FHR Baseline Changes: No Baseline Change Variability: Moderate 6-25 bpm Accelerations: 15X15 Decelerations: None Category: Category I Datetime: 02/22/2019 15:19 Stage of : Antepartum Datetime: 02/22/2019 15:00 Labor Evaluation Frequency: 3/60 Monitor Mode: External Duration (sec)2399: 50-60 Quality: Mild Pattern: Normal: <= 5 Contractions in 10 Minutes Resting Tone [place]: Relaxed Heart Rate FHR Baseline Rate: 140 Monitor Mode: External US FHR Baseline Changes: No Baseline Change Variability: Moderate 6-25 bpm Accelerations: 15X15 Decelerations: None Category: Category I Datetime: 02/22/2019 14:00 Labor Evaluation Frequency: 2/60 Monitor Mode: External Duration (sec)2399: 50-60 Quality: Mild Pattern: Normal: <= 5 Contractions in 10 Minutes Resting Tone [place]: Relaxed Heart Rate FHR Baseline Rate: 145 Monitor Mode: External US FHR Baseline Changes: No Baseline Change Variability: Moderate 6-25 bpm Accelerations: 15X15 Decelerations: None Category: Category I Pain Presence: None/Denies Datetime: 02/22/2019 13:00 Labor Evaluation Frequency: 4/60 Monitor Mode: External Duration (sec)2399: 60-70 Quality: Mild Pattern: Normal: <= 5 Contractions in 10 Minutes Resting Tone [place]: Relaxed Heart Rate FHR Baseline Rate: 135 FHR Baseline Changes: No Baseline Change Variability: Moderate 6-25 bpm Accelerations: 15X15 Decelerations: None Category: Category I Datetime: 02/22/2019 12:00 Labor Evaluation Frequency: 3/60 Monitor Mode: External Duration (sec)2399: 50-70 Quality: Mild Pattern: Normal: <= 5 Contractions in 10 Minutes Resting Tone [place]: Relaxed Heart Rate FHR Baseline Rate: 135 Monitor Mode: External US FHR Baseline Changes: No Baseline Change Variability: Moderate 6-25 bpm Accelerations: 15X15 Decelerations: None Category: Category I Datetime: 02/22/2019 11:58 Labor Evaluation Frequency: 1/60 Monitor Mode: External Duration (sec)2399: 50 Quality: Mild Pattern: Normal: <= 5 Contractions in 10 Minutes Resting Tone [place]: Relaxed Heart Rate FHR Baseline Rate: 140 Monitor Mode: External US FHR Baseline Changes: No Baseline Change Variability: Moderate 6-25 bpm Accelerations: 15X15 Decelerations: None Category: Category I Datetime: 02/22/2019 10:58 Labor Evaluation Frequency: 1/60 Monitor Mode: External Duration (sec)2399: 70 Quality: Mild Pattern: Normal: <= 5 Contractions in 10 Minutes Resting Tone [place]: Relaxed Heart Rate FHR Baseline Rate: 135 FHR Baseline Changes: No Baseline Change Variability: Moderate 6-25 bpm Accelerations: 15X15 Decelerations: None Category: Category I Datetime: 02/22/2019 09:30 Stage of : Antepartum Datetime: 02/22/2019 09:01 Labor Evaluation Frequency: 3 Monitor Mode: External Quality: Mild Pattern: Normal: <= 5 Contractions in 10 Minutes Resting Tone [place]: Relaxed Heart Rate FHR Baseline Rate: 135 FHR Baseline Changes: No Baseline Change Variability: Moderate 6-25 bpm Accelerations: 15X15 Decelerations: None Category: Category I Datetime: 02/22/2019 08:15 Maternal Assessment Level of Consciousness: Fully Conscious Headache: Denies Blurred Vision: No Nausea/Vomiting: Denies RUQ Epigastric Pain: Denies Facial Edema: None Datetime: 02/22/2019 08:00 Labor Evaluation Frequency: 2/60 Monitor Mode: External Duration (sec)2399: 60-90 Quality: Mild Pattern: Normal: <= 5 Contractions in 10 Minutes Resting Tone [place]: Relaxed Heart Rate FHR Baseline Rate: 135 Monitor Mode: External US FHR Baseline Changes: No Baseline Change Variability: Moderate 6-25 bpm Accelerations: 15X15 Decelerations: None Category: Category I Pain Assessment Pain Scale: 0 Pain Presence: None/Denies Pain Type: N/A Datetime: 02/22/2019 07:00 Labor Evaluation Frequency: X4 Monitor Mode: External Duration (sec)2399: 50-120+ Quality: Mild Heart Rate FHR Baseline Rate: 135 Monitor Mode: External US FHR Baseline Changes: No Baseline Change Variability: Moderate 6-25 bpm Accelerations: 15X15 Decelerations: None Category: Category I Datetime: 02/22/2019 06:00 Labor Evaluation Frequency: X3 Monitor Mode: External Duration (sec)2399: 90-110 Quality: Mild Heart Rate FHR Baseline Rate: 135 Monitor Mode: External US FHR Baseline Changes: No Baseline Change Variability: Moderate 6-25 bpm Accelerations: 15X15 Decelerations: None Category: Category I Datetime: 02/22/2019 05:00 Labor Evaluation Frequency: X1 Monitor Mode: External Duration (sec)2399: 110 Quality: Mild Heart Rate FHR Baseline Rate: 130 Monitor Mode: External US FHR Baseline Changes: No Baseline Change Variability: Moderate 6-25 bpm Accelerations: 15X15 Decelerations: None Category: Category I Datetime: 02/22/2019 04:15 Temperature Route: Oral Pain Assessment Pain Scale: 0 Datetime: 02/22/2019 04:00 Labor Evaluation Frequency: X3 Monitor Mode: External Duration (sec)2399: 100 Quality: Mild Heart Rate FHR Baseline Rate: 130 Monitor Mode: External US FHR Baseline Changes: No Baseline Change Variability: Moderate 6-25 bpm Accelerations: 15X15 Decelerations: None Category: Category I Datetime: 02/22/2019 03:00 Labor Evaluation Frequency: X2 Monitor Mode: External Duration (sec)2399: 90-120 Quality: Mild Heart Rate FHR Baseline Rate: 135 Monitor Mode: External US FHR Baseline Changes: No Baseline Change Variability: Moderate 6-25 bpm Accelerations: 15X15 Decelerations: None Category: Category I Datetime: 02/22/2019 02:00 Labor Evaluation Frequency: X4 Monitor Mode: External Duration (sec)2399: 70-120 Quality: Mild Heart Rate FHR Baseline Rate: 135 Monitor Mode: External US FHR Baseline Changes: No Baseline Change Variability: Moderate 6-25 bpm Accelerations: 15X15 Decelerations: None Category: Category I Datetime: 02/22/2019 01:00 Labor Evaluation Frequency: X1 Monitor Mode: External Duration (sec)2399: 90 Quality: Mild Heart Rate FHR Baseline Rate: 140 Monitor Mode: External US FHR Baseline Changes: No Baseline Change Variability: Moderate 6-25 bpm Accelerations: Prolonged Decelerations: None Category: Category I Datetime: 02/22/2019 00:00 Labor Evaluation Frequency: 0 Monitor Mode: External Heart Rate FHR Baseline Rate: 135 Monitor Mode: External US FHR Baseline Changes: No Baseline Change Variability: Moderate 6-25 bpm Accelerations: 15X15 Decelerations: None Category: Category I Datetime: 02/21/2019 23:00 Labor Evaluation Frequency: X2 Monitor Mode: External Duration (sec)2399: 50-80 Quality: Mild Heart Rate FHR Baseline Rate: 140 Monitor Mode: External US FHR Baseline Changes: No Baseline Change Variability: Moderate 6-25 bpm Accelerations: 15X15 Decelerations: None Category: Category I Datetime: 02/21/2019 22:40 Nausea/Vomiting: Denies (Annotations: HAS HEARTBURN) Temperature Route: Oral Pain Assessment Pain Scale: 0 Datetime: 02/21/2019 21:53 Comments: EFM REAPPLIED Datetime: 02/21/2019 21:00 Contraction Comments: OFF EFM Datetime: 02/21/2019 20:43 Comments: OFF EFM FOR SHOWER. Datetime: 02/21/2019 20:38 Bedside Blood Glucose: 121 Datetime: 02/21/2019 20:20 Assessment Type: Ongoing Assessment Maternal Assessment Level of Consciousness: Fully Conscious DTR's/Clonus: DTRs 2+; No Clonus Headache: Denies Blurred Vision: No Respiratory Effort: Unlabored; Regular Rhythm; Equal Expansion Breath Sounds, Left: Clear and Equal Breath Sounds, Right: Clear and Equal Nausea/Vomiting: Denies RUQ Epigastric Pain: Denies Lower Extremities Edema: None Upper Extremities Edema: None Facial Edema: None Temperature Route: Oral Fall Risk Assessment History of Falling: (0) No Secondary Diagnosis: (0) No Ambulatory Aid: (0) Bedrest/Nurse Assist IV Therapy: (20) Yes Gait: (0) Normal/Bedrest/Immobile Mental Status: (0) Oriented to Own Ability Fall Score: 20 Fall Risk Score Definition: No Risk: No action required Monitor Mode: External Monitor Mode: External US Pain Assessment Pain Scale: 0 Datetime: 02/21/2019 20:19 Contraction Comments: BACK FROM BATHROOM. EFM REAPPLIED. Datetime: 02/21/2019 20:00 Labor Evaluation Frequency: 0 Monitor Mode: External Heart Rate FHR Baseline Rate: 140 Monitor Mode: External US FHR Baseline Changes: No Baseline Change Variability: Moderate 6-25 bpm Accelerations: 15X15 Decelerations: None Category: Category I Datetime: 02/21/2019 19:56 Comments: REMAINS IN BATHROOM OFF EFM Datetime: 02/21/2019 19:11 Comments: REPORT T BEDSIDE. SHE IS SITTING UP IN CHAIR AT BEDSIDE WITH HER FAMILY AND DENIES ANY NE EDS AT THIS TIME. Datetime: 02/21/2019 18:13 Stage of : Antepartum Labor Evaluation Frequency: 0/hr Monitor Mode: External Heart Rate FHR Baseline Rate: 135 Monitor Mode: External US Variability: Moderate 6-25 bpm Accelerations: 15X15 Decelerations: None Pain Presence: None/Denies Datetime: 02/21/2019 17:27 Maternal Assessment Level of Consciousness: Fully Conscious Headache: Denies Blurred Vision: No Respiratory Effort: Unlabored Nausea/Vomiting: Denies RUQ Epigastric Pain: Denies Monitor Mode: External US Pain Presence: None/Denies Datetime: 02/21/2019 17:09 Comments: loss of contact pt. sitting up in chair Datetime: 02/21/2019 17:03 Stage of : Antepartum Labor Evaluation Frequency: 0/hr Monitor Mode: External Heart Rate FHR Baseline Rate: 135 Monitor Mode: External US Variability: Moderate 6-25 bpm Accelerations: 15X15 Decelerations: None Pain Presence: None/Denies Datetime: 02/21/2019 16:25 Comments: pt. sitting up in chair for change of position. some loss of contact Datetime: 02/21/2019 15:04 Stage of : Antepartum Labor Evaluation Frequency: 0/hr Monitor Mode: External Heart Rate FHR Baseline Rate: 145 Monitor Mode: External US Variability: Moderate 6-25 bpm Accelerations: 15X15 Decelerations: None Pain Presence: None/Denies Datetime: 02/21/2019 14:00 Stage of : Antepartum Maternal Assessment Level of Consciousness: Fully Conscious Headache: Denies Nausea/Vomiting: Denies RUQ Epigastric Pain: Denies Labor Evaluation Frequency: 0/hr Monitor Mode: External Heart Rate FHR Baseline Rate: 145 Monitor Mode: External US Variability: Moderate 6-25 bpm Accelerations: 15X15 Decelerations: None Pain Assessment Pain Scale: 0 Pain Presence: None/Denies Vaginal Bleeding: None Datetime: 02/21/2019 13:00 Stage of : Antepartum Maternal Assessment Level of Consciousness: Fully Conscious Headache: Denies Nausea/Vomiting: Denies RUQ Epigastric Pain: Denies Labor Evaluation Frequency: 0/hr Monitor Mode: External Heart Rate FHR Baseline Rate: 135 Monitor Mode: External US Variability: Moderate 6-25 bpm Accelerations: 15X15 Decelerations: None Pain Assessment Pain Scale: 0 Pain Presence: None/Denies Vaginal Bleeding: None Datetime: 02/21/2019 12:07 Stage of : Antepartum Maternal Assessment Level of Consciousness: Fully Conscious Headache: Denies Nausea/Vomiting: Denies RUQ Epigastric Pain: Denies Labor Evaluation Frequency: 0/hr Monitor Mode: External Heart Rate FHR Baseline Rate: 145 Monitor Mode: External US Variability: Moderate 6-25 bpm Accelerations: 15X15 Decelerations: None Pain Assessment Pain Scale: 0 Pain Presence: None/Denies Vaginal Bleeding: None Datetime: 02/21/2019 11:29 Maternal Assessment Level of Consciousness: Fully Conscious Headache: Denies Blurred Vision: No Respiratory Effort: Unlabored Nausea/Vomiting: Denies RUQ Epigastric Pain: Denies Facial Edema: None Datetime: 02/21/2019 11:10 Stage of : Antepartum Maternal Assessment Level of Consciousness: Fully Conscious Headache: Denies Nausea/Vomiting: Denies RUQ Epigastric Pain: Denies Pain Assessment Pain Scale: 0 Pain Presence: None/Denies Vaginal Bleeding: None Datetime: 02/21/2019 11:01 Labor Evaluation Frequency: 0/hr Monitor Mode: External Heart Rate FHR Baseline Rate: 145 Monitor Mode: External US Variability: Moderate 6-25 bpm Accelerations: 15X15 Decelerations: None Datetime: 02/21/2019 10:00 Labor Evaluation Frequency: 0 Monitor Mode: External Heart Rate FHR Baseline Rate: 140 Monitor Mode: External US Variability: Moderate 6-25 bpm Accelerations: 15X15 Decelerations: None Datetime: 02/21/2019 09:50 Maternal Assessment Level of Consciousness: Fully Conscious Headache: Denies Blurred Vision: No Respiratory Effort: Unlabored Nausea/Vomiting: Denies RUQ Epigastric Pain: Denies Bedside Blood Glucose: 96 Pain Presence: None/Denies Datetime: 02/21/2019 09:07 Labor Evaluation Frequency: 0/hr Monitor Mode: External Heart Rate FHR Baseline Rate: 140 Monitor Mode: External US Variability: Moderate 6-25 bpm Accelerations: 15X15 Datetime: 02/21/2019 08:23 Maternal Assessment Level of Consciousness: Fully Conscious Headache: Denies Blurred Vision: No Nausea/Vomiting: Denies RUQ Epigastric Pain: Denies Heart Rate FHR Baseline Rate: 135 Monitor Mode: External US Variability: Moderate 6-25 bpm Accelerations: 15X15 Decelerations: None Datetime: 02/21/2019 07:37 Heart Rate FHR Baseline Rate: 140 Monitor Mode: External US Variability: Moderate 6-25 bpm Accelerations: 15X15 Decelerations: None Datetime: 02/21/2019 07:23 Stage of : Antepartum Maternal Assessment Level of Consciousness: Fully Conscious DTR's/Clonus: DTRs 2+ Headache: Denies Blurred Vision: No Respiratory Effort: Unlabored Breath Sounds, Left: Clear and Equal Breath Sounds, Right: Clear and Equal Nausea/Vomiting: Denies RUQ Epigastric Pain: Denies Bedside Blood Glucose: 96 Resting Tone [place]: Relaxed Monitor Mode: External US Datetime: 02/21/2019 07:15 Pain Presence: None/Denies Datetime: 02/21/2019 06:30 Labor Evaluation Frequency: X6 Monitor Mode: External Duration (sec)2399: 40-70 Quality: Mild Resting Tone [place]: Relaxed Heart Rate FHR Baseline Rate: 140 Monitor Mode: External US Variability: Moderate 6-25 bpm Accelerations: 15X15 Decelerations: None Category: Category I Pain Presence: None/Denies Datetime: 02/21/2019 05:30 Labor Evaluation Frequency: X3 Monitor Mode: External Duration (sec)2399: 40-80 Quality: Mild Resting Tone [place]: Relaxed Heart Rate FHR Baseline Rate: 145 Monitor Mode: External US Variability: Moderate 6-25 bpm Accelerations: 15X15 Decelerations: None Category: Category I Pain Presence: None/Denies Datetime: 02/21/2019 04:30 Labor Evaluation Frequency: X2 Monitor Mode: External Duration (sec)2399: 80-90 Quality: Mild Resting Tone [place]: Relaxed Heart Rate FHR Baseline Rate: 135 Monitor Mode: External US Variability: Moderate 6-25 bpm Accelerations: 15X15 Decelerations: None Category: Category I Pain Presence: None/Denies Datetime: 02/21/2019 03:30 Labor Evaluation Frequency: 0 Monitor Mode: External Resting Tone [place]: Relaxed Heart Rate FHR Baseline Rate: 145 Monitor Mode: External US Variability: Moderate 6-25 bpm Accelerations: 15X15 Decelerations: None Category: Category I Pain Presence: None/Denies Datetime: 02/21/2019 02:30 Labor Evaluation Frequency: 0 Monitor Mode: External Duration (sec)2399: denies Resting Tone [place]: Relaxed Heart Rate FHR Baseline Rate: 140 Monitor Mode: External US Variability: Moderate 6-25 bpm Accelerations: 15X15 Decelerations: None Category: Category I Pain Presence: None/Denies Datetime: 02/21/2019 01:30 Labor Evaluation Frequency: 0 Monitor Mode: External Duration (sec)2399: denies Resting Tone [place]: Relaxed Heart Rate FHR Baseline Rate: 140 Monitor Mode: External US Variability: Moderate 6-25 bpm Accelerations: 15X15 Decelerations: None Category: Category I Pain Presence: None/Denies Datetime: 02/21/2019 00:30 Labor Evaluation Frequency: 0 Monitor Mode: External Duration (sec)2399: denies Resting Tone [place]: Relaxed Heart Rate FHR Baseline Rate: 135 Monitor Mode: External US Variability: Moderate 6-25 bpm Accelerations: 15X15 Decelerations: None Category: Category I Pain Presence: None/Denies Datetime: 02/20/2019 23:21 Labor Evaluation Frequency: 0 Monitor Mode: External Duration (sec)2399: denies Quality: Mild Resting Tone [place]: Relaxed Heart Rate FHR Baseline Rate: 155 Monitor Mode: External US Variability: Moderate 6-25 bpm Accelerations: 15X15 Decelerations: None Category: Category I Pain Presence: None/Denies Datetime: 02/20/2019 22:36 Comments: maternal heart rate detected. Datetime: 02/20/2019 22:32 Pain Presence: None/Denies Datetime: 02/20/2019 22:24 Stage of : Antepartum Assessment Type: Ongoing Assessment Maternal Assessment Level of Consciousness: Fully Conscious DTR's/Clonus: DTRs 2+; No Clonus Headache: Denies Blurred Vision: No Respiratory Effort: Unlabored; Regular Rhythm; Equal Expansion Breath Sounds, Left: Clear and Equal Breath Sounds, Right: Clear and Equal Nausea/Vomiting: Denies RUQ Epigastric Pain: Denies Lower Extremities Edema: None Degree: None Upper Extremities Edema: None Degree: None Facial Edema: None Temperature Route: Oral Fall Risk Assessment History of Falling: (0) No Secondary Diagnosis: (0) No Ambulatory Aid: (0) Bedrest/Nurse Assist IV Therapy: (0) No Gait: (0) Normal/Bedrest/Immobile Mental Status: (0) Oriented to Own Ability Fall Score: 0 Fall Risk Score Definition: No Risk: No action required Monitor Mode: External Pain Presence: None/Denies Datetime: 02/20/2019 22:10 Stage of : Antepartum Datetime: 02/20/2019 21:20 Monitor Mode: External Quality: Mild Pattern: Normal: <= 5 Contractions in 10 Minutes Resting Tone [place]: Relaxed Heart Rate FHR Baseline Rate: 150 Monitor Mode: External US FHR Baseline Changes: No Baseline Change Variability: Moderate 6-25 bpm Accelerations: 15X15 Decelerations: None Category: Category I Datetime: 02/20/2019 20:41 Stage of : Antepartum Monitor Mode: External Quality: Mild Pattern: Normal: <= 5 Contractions in 10 Minutes Resting Tone [place]: Relaxed Heart Rate FHR Baseline Rate: 160 Monitor Mode: External US FHR Baseline Changes: No Baseline Change Variability: Moderate 6-25 bpm Accelerations: 15X15 Decelerations: None Category: Category I Datetime: 02/20/2019 20:05 Stage of : Antepartum Bedside Blood Glucose: 175 Monitor Mode: External Quality: Mild Pattern: Normal: <= 5 Contractions in 10 Minutes Resting Tone [place]: Relaxed Heart Rate FHR Baseline Rate: 160 Monitor Mode: External US Variability: Moderate 6-25 bpm Accelerations: 15X15 Decelerations: None Category: Category I Pain Assessment Comments: Pt c/o heartburn Datetime: 02/20/2019 20:00 Assessment Type: Ongoing Assessment Maternal Assessment Level of Consciousness: Fully Conscious DTR's/Clonus: DTRs 2+; No Clonus Headache: Denies Blurred Vision: No Respiratory Effort: Unlabored; Regular Rhythm; Equal Expansion Breath Sounds, Left: Clear and Equal Breath Sounds, Right: Clear and Equal Nausea/Vomiting: Denies RUQ Epigastric Pain: Present Lower Extremities Edema: None Degree: None Upper Extremities Edema: None Degree: None Facial Edema: None Fall Risk Assessment History of Falling: (0) No Secondary Diagnosis: (0) No Ambulatory Aid: (0) Bedrest/Nurse Assist IV Therapy: (20) Yes Gait: (0) Normal/Bedrest/Immobile Mental Status: (0) Oriented to Own Ability Fall Score: 20 Fall Risk Score Definition: No Risk: No action required Comment: Datetime: 02/20/2019 19:09 Stage of : Antepartum Monitor Mode: External Quality: Mild Pattern: Normal: <= 5 Contractions in 10 Minutes Resting Tone [place]: Relaxed Heart Rate FHR Baseline Rate: 140 Monitor Mode: External US FHR Baseline Changes: No Baseline Change Variability: Moderate 6-25 bpm Accelerations: 15X15 Decelerations: None Category: Category I Pain Assessment Pain Scale: 0 Pain Presence: None/Denies Pain Type: N/A Datetime: 02/20/2019 19:00 Labor Evaluation Frequency: X3 Monitor Mode: External Duration (sec)2399: 60 Quality: Mild Pattern: Normal: <= 5 Contractions in 10 Minutes Resting Tone [place]: Relaxed Heart Rate FHR Baseline Rate: 140 Monitor Mode: External US FHR Baseline Changes: No Baseline Change Variability: Moderate 6-25 bpm Accelerations: 15X15 Decelerations: None Category: Category I Pain Assessment Pain Scale: 0 Pain Presence: None/Denies Pain Type: N/A Pain Goal: 0 Datetime: 02/20/2019 18:01 Labor Evaluation Frequency: X4 Monitor Mode: External Duration (sec)2399: 60 Quality: Mild Pattern: Normal: <= 5 Contractions in 10 Minutes Resting Tone [place]: Relaxed Heart Rate FHR Baseline Rate: 140 Monitor Mode: External US FHR Baseline Changes: No Baseline Change Variability: Moderate 6-25 bpm Accelerations: 15X15 Decelerations: None Category: Category I Pain Assessment Pain Scale: 0 Pain Presence: None/Denies Pain Type: N/A Pain Goal: 0 Datetime: 02/20/2019 17:00 Labor Evaluation Frequency: X2 Monitor Mode: External Duration (sec)2399: 60 Quality: Mild Pattern: Normal: <= 5 Contractions in 10 Minutes Resting Tone [place]: Relaxed Heart Rate FHR Baseline Rate: 140 Monitor Mode: External US FHR Baseline Changes: No Baseline Change Variability: Moderate 6-25 bpm Accelerations: 15X15 Decelerations: None Category: Category I Pain Assessment Pain Scale: 0 Pain Presence: None/Denies Pain Type: N/A Pain Goal: 0 Datetime: 02/20/2019 16:00 Labor Evaluation Frequency: X3 Monitor Mode: External Duration (sec)2399: 40 Quality: Mild Pattern: Normal: <= 5 Contractions in 10 Minutes Resting Tone [place]: Relaxed Heart Rate FHR Baseline Rate: 140 Monitor Mode: External US FHR Baseline Changes: No Baseline Change Variability: Moderate 6-25 bpm Accelerations: 15X15 Decelerations: None Category: Category I Pain Assessment Pain Scale: 0 Pain Presence: None/Denies Pain Type: N/A Pain Goal: 0 Datetime: 02/20/2019 15:01 Labor Evaluation Frequency: X3 Monitor Mode: External Duration (sec)2399: 40-60 Quality: Mild Pattern: Normal: <= 5 Contractions in 10 Minutes Resting Tone [place]: Relaxed Heart Rate FHR Baseline Rate: 140 Monitor Mode: External US FHR Baseline Changes: No Baseline Change Variability: Moderate 6-25 bpm Accelerations: 15X15 Decelerations: None Category: Category I Pain Assessment Pain Scale: 0 Pain Presence: None/Denies Pain Type: N/A Pain Goal: 0 Datetime: 02/20/2019 14:00 Labor Evaluation Frequency: X3 Monitor Mode: External Duration (sec)2399: 60-80 Quality: Mild Pattern: Normal: <= 5 Contractions in 10 Minutes Resting Tone [place]: Relaxed Heart Rate FHR Baseline Rate: 140 Monitor Mode: External US FHR Baseline Changes: No Baseline Change Variability: Moderate 6-25 bpm Accelerations: 15X15 Decelerations: None Category: Category I Pain Assessment Pain Scale: 0 Pain Presence: None/Denies Pain Type: N/A Pain Goal: 0 Datetime: 02/20/2019 13:00 Labor Evaluation Frequency: X3 Monitor Mode: External Duration (sec)2399: 60 Quality: Mild Pattern: Normal: <= 5 Contractions in 10 Minutes Resting Tone [place]: Relaxed Heart Rate FHR Baseline Rate: 140 Monitor Mode: External US FHR Baseline Changes: No Baseline Change Variability: Moderate 6-25 bpm Accelerations: 15X15 Decelerations: None Category: Category I Pain Assessment Pain Scale: 0 Pain Presence: None/Denies Pain Type: N/A Pain Goal: 0 Vaginal Exam Membrane Status: Intact Datetime: 02/20/2019 12:00 Labor Evaluation Frequency: X2 Monitor Mode: External Duration (sec)2399: 60 Quality: Mild Pattern: Normal: <= 5 Contractions in 10 Minutes Resting Tone [place]: Relaxed Heart Rate FHR Baseline Rate: 140 Monitor Mode: External US FHR Baseline Changes: No Baseline Change Variability: Moderate 6-25 bpm Accelerations: 15X15 Decelerations: None Category: Category I Pain Assessment Pain Scale: 0 Pain Presence: None/Denies Pain Type: N/A Pain Goal: 0 Datetime: 02/20/2019 11:00 Labor Evaluation Frequency: X6 Monitor Mode: External Duration (sec)2399: 40-100 Quality: Mild Pattern: Normal: <= 5 Contractions in 10 Minutes Resting Tone [place]: Relaxed Heart Rate FHR Baseline Rate: 140 Monitor Mode: External US FHR Baseline Changes: No Baseline Change Variability: Moderate 6-25 bpm Accelerations: 15X15 Decelerations: None Category: Category I Pain Assessment Pain Scale: 0 Pain Presence: None/Denies Pain Type: N/A Pain Goal: 0 Vaginal Exam Membrane Status: Intact Datetime: 02/20/2019 10:00 Labor Evaluation Frequency: X4 Monitor Mode: External Duration (sec)2399: 60 Quality: Mild Pattern: Normal: <= 5 Contractions in 10 Minutes Resting Tone [place]: Relaxed Heart Rate FHR Baseline Rate: 130 Monitor Mode: External US FHR Baseline Changes: No Baseline Change Variability: Moderate 6-25 bpm Accelerations: 15X15 Decelerations: None Category: Category I Pain Assessment Pain Scale: 0 Pain Presence: None/Denies Pain Type: N/A Pain Goal: 0 Datetime: 02/20/2019 09:00 Labor Evaluation Frequency: 5-8 Monitor Mode: External Duration (sec)2399: 60-80 Quality: Mild Pattern: Normal: <= 5 Contractions in 10 Minutes Resting Tone [place]: Relaxed Heart Rate FHR Baseline Rate: 140 Monitor Mode: External US FHR Baseline Changes: No Baseline Change Variability: Moderate 6-25 bpm Accelerations: 15X15 Decelerations: Early Category: Category I Pain Assessment Pain Scale: 0 Pain Presence: None/Denies Pain Type: N/A Pain Goal: 0 Vaginal Exam Membrane Status: Intact Datetime: 02/20/2019 08:00 Assessment Type: Ongoing Assessment Maternal Assessment Level of Consciousness: Fully Conscious DTR's/Clonus: DTRs 2+; No Clonus Headache: Denies Blurred Vision: No Respiratory Effort: Unlabored; Regular Rhythm; Equal Expansion Nausea/Vomiting: Denies RUQ Epigastric Pain: Denies Lower Extremities Edema: None Degree: None Upper Extremities Edema: None Degree: None Facial Edema: None Temperature Route: Oral Fall Risk Assessment History of Falling: (0) No Secondary Diagnosis: (0) No Ambulatory Aid: (0) Bedrest/Nurse Assist IV Therapy: (0) No Gait: (0) Normal/Bedrest/Immobile Mental Status: (0) Oriented to Own Ability Fall Score: 0 Fall Risk Score Definition: No Risk: No action required Labor Evaluation Frequency: 2-10 Monitor Mode: External Duration (sec)2399: 60-80 Quality: Mild Pattern: Normal: <= 5 Contractions in 10 Minutes Resting Tone [place]: Relaxed Heart Rate FHR Baseline Rate: 130 Monitor Mode: External US FHR Baseline Changes: No Baseline Change Variability: Moderate 6-25 bpm Accelerations: 15X15 Decelerations: None Category: Category I Pain Assessment Pain Scale: 0 Pain Presence: None/Denies Pain Type: N/A Pain Goal: 0 Datetime: 02/20/2019 07:00 Labor Evaluation Frequency: 8/HR Monitor Mode: External Duration (sec)2399: 50-80 Quality: Mild Pattern: Normal: <= 5 Contractions in 10 Minutes Resting Tone [place]: Relaxed Heart Rate FHR Baseline Rate: 135 Monitor Mode: External US FHR Baseline Changes: No Baseline Change Variability: Moderate 6-25 bpm Accelerations: 15X15 Decelerations: None Category: Category I Datetime: 02/20/2019 06:00 Labor Evaluation Frequency: 1/HR Monitor Mode: External Duration (sec)2399: 80 Quality: Mild Pattern: Normal: <= 5 Contractions in 10 Minutes Resting Tone [place]: Relaxed Heart Rate FHR Baseline Rate: 130 Monitor Mode: External US FHR Baseline Changes: No Baseline Change Variability: Moderate 6-25 bpm Accelerations: 15X15 Decelerations: None Category: Category I Datetime: 02/20/2019 05:00 Labor Evaluation Frequency: 6/HR Monitor Mode: External Duration (sec)2399: 60-110 Quality: Mild Pattern: Normal: <= 5 Contractions in 10 Minutes Resting Tone [place]: Relaxed Heart Rate FHR Baseline Rate: 130 FHR Baseline Changes: No Baseline Change Variability: Moderate 6-25 bpm Accelerations: 15X15 Decelerations: None Category: Category I Datetime: 02/20/2019 04:08 Labor Evaluation Frequency: IRREG/INVERTED Monitor Mode: External Quality: Mild Pattern: Normal: <= 5 Contractions in 10 Minutes Resting Tone [place]: Relaxed Heart Rate FHR Baseline Rate: 135 FHR Baseline Changes: No Baseline Change Variability: Moderate 6-25 bpm Accelerations: 10X10 Decelerations: None Category: Category I Datetime: 02/20/2019 03:00 Labor Evaluation Frequency: IRREG/INVERTED Monitor Mode: External Quality: Mild Pattern: Normal: <= 5 Contractions in 10 Minutes Resting Tone [place]: Relaxed Heart Rate FHR Baseline Rate: 130 FHR Baseline Changes: No Baseline Change Variability: Moderate 6-25 bpm Accelerations: 10X10 Decelerations: None Category: Category I Datetime: 02/20/2019 02:00 Labor Evaluation Frequency: OCCA/INVERTED Monitor Mode: External Quality: Mild Pattern: Normal: <= 5 Contractions in 10 Minutes Resting Tone [place]: Relaxed Heart Rate FHR Baseline Rate: 125 Monitor Mode: External US FHR Baseline Changes: No Baseline Change Variability: Moderate 6-25 bpm Accelerations: 15X15 Decelerations: None Category: Category I Datetime: 02/20/2019 01:00 Labor Evaluation Frequency: 0 Monitor Mode: External Pattern: Normal: <= 5 Contractions in 10 Minutes Resting Tone [place]: Relaxed Monitor Mode: External US Comments: FHR TRACING INTERMITTENTLY Datetime: 02/20/2019 00:00 Stage of : Antepartum Labor Evaluation Frequency: 0 Monitor Mode: External Pattern: Normal: <= 5 Contractions in 10 Minutes Resting Tone [place]: Relaxed Heart Rate FHR Baseline Rate: 135 Monitor Mode: External US FHR Baseline Changes: No Baseline Change Variability: Moderate 6-25 bpm Decelerations: None Category: Category I Datetime: 02/19/2019 22:51 Labor Evaluation Frequency: 0 Monitor Mode: External Pattern: Normal: <= 5 Contractions in 10 Minutes Resting Tone [place]: Relaxed Heart Rate FHR Baseline Rate: 135 Monitor Mode: External US FHR Baseline Changes: No Baseline Change Variability: Moderate 6-25 bpm Accelerations: 15X15 Decelerations: None Category: Category I Datetime: 02/19/2019 22:00 Labor Evaluation Frequency: 0 Monitor Mode: External Pattern: Normal: <= 5 Contractions in 10 Minutes Resting Tone [place]: Relaxed Heart Rate FHR Baseline Rate: 140 Monitor Mode: External US FHR Baseline Changes: No Baseline Change Variability: Moderate 6-25 bpm Accelerations: 10X10 Decelerations: None Category: Category I Datetime: 02/19/2019 21:00 Labor Evaluation Frequency: 0 Monitor Mode: External Pattern: Normal: <= 5 Contractions in 10 Minutes Resting Tone [place]: Relaxed Heart Rate FHR Baseline Rate: 145 Monitor Mode: External US FHR Baseline Changes: No Baseline Change Variability: Moderate 6-25 bpm Accelerations: 15X15 Decelerations: None Category: Category I Datetime: 02/19/2019 20:57 Assessment Type: Ongoing Assessment Maternal Assessment Level of Consciousness: Fully Conscious DTR's/Clonus: DTRs 2+; No Clonus Headache: Denies Headache: Denies Blurred Vision: No Respiratory Effort: Unlabored; Regular Rhythm; Equal Expansion Nausea/Vomiting: Denies RUQ Epigastric Pain: Denies Lower Extremities Edema: None Degree: None Upper Extremities Edema: None Degree: None Facial Edema: None Fall Risk Assessment History of Falling: (0) No Secondary Diagnosis: (0) No Ambulatory Aid: (0) Bedrest/Nurse Assist IV Therapy: (20) Yes Gait: (0) Normal/Bedrest/Immobile Mental Status: (0) Oriented to Own Ability Fall Score: 20 Fall Risk Score Definition: No Risk: No action required Pain Presence: None/Denies Datetime: 02/19/2019 20:00 Labor Evaluation Frequency: 0 Monitor Mode: External Pattern: Normal: <= 5 Contractions in 10 Minutes Resting Tone [place]: Relaxed Heart Rate FHR Baseline Rate: 150 Monitor Mode: External US FHR Baseline Changes: No Baseline Change Variability: Moderate 6-25 bpm Accelerations: 15X15 Decelerations: None Category: Category I Datetime: 02/19/2019 19:30 Assessment Type: Ongoing Assessment Datetime: 02/19/2019 19:00 Maternal Assessment Level of Consciousness: Lethargy DTR's/Clonus: DTRs 2+ Headache: Denies Blurred Vision: No Respiratory Effort: Unlabored Nausea/Vomiting: Present RUQ Epigastric Pain: Present Facial Edema: None Labor Evaluation Frequency: 7-9 Monitor Mode: External Duration (sec)2399: 5-10 Quality: Mild Resting Tone [place]: Relaxed Heart Rate FHR Baseline Rate: 140 Monitor Mode: External US Variability: Moderate 6-25 bpm Accelerations: 10X10 Decelerations: None Category: Category I Pain Assessment Pain Scale: 0 Pain Presence: None/Denies Pain Type: N/A Pain Relief Measures: Comfort Measures Datetime: 02/19/2019 18:29 Maternal Assessment Level of Consciousness: Fully Conscious DTR's/Clonus: DTRs 2+ Headache: Denies Blurred Vision: No Respiratory Effort: Unlabored Nausea/Vomiting: Denies RUQ Epigastric Pain: Denies Facial Edema: None Labor Evaluation Frequency: 0 Monitor Mode: External Duration (sec)2399: 0 Resting Tone [place]: Relaxed Heart Rate FHR Baseline Rate: 150 Monitor Mode: External US Variability: Moderate 6-25 bpm Accelerations: 15X15 Decelerations: None Category: Category I Pain Assessment Pain Scale: 0 Pain Presence: None/Denies Pain Type: N/A Pain Goal: 0 Pain Relief Measures: Comfort Measures Vaginal Exam Membrane Status: Intact Datetime: 02/19/2019 17:30 Assessment Type: Admission Assessment Maternal Assessment Level of Consciousness: Fully Conscious DTR's/Clonus: DTRs 2+; No Clonus Headache: Denies Blurred Vision: No Respiratory Effort: Unlabored Respiratory Effort: Unlabored; Regular Rhythm; Equal Expansion Breath Sounds, Left: Clear and Equal Breath Sounds, Left: Clear and Equal Breath Sounds, Right: Clear and Equal Breath Sounds, Right: Clear and Equal Nausea/Vomiting: Denies RUQ Epigastric Pain: Denies Lower Extremities Edema: None Upper Extremities Edema: None Facial Edema: None Fall Risk Assessment History of Falling: (0) No Secondary Diagnosis: (0) No Ambulatory Aid: (0) Bedrest/Nurse Assist IV Therapy: (20) Yes Gait: (0) Normal/Bedrest/Immobile Mental Status: (0) Oriented to Own Ability Fall Score: 20 Fall Risk Score Definition: No Risk: No action required Labor Evaluation Frequency: 3-4 Monitor Mode: External Duration (sec)2399: 5-10 Quality: Mild Resting Tone [place]: Relaxed Heart Rate FHR Baseline Rate: 140 Monitor Mode: External US Variability: Moderate 6-25 bpm Accelerations: 15X15 Decelerations: None Category: Category I Pain Assessment Pain Scale: 0 Pain Presence: None/Denies Pain Type: N/A Pain Goal: 0 Pain Relief Measures: Comfort Measures Pain Assessment Comments: "i don't feel any uc's" Vaginal Exam Membrane Status: Intact Datetime: 02/19/2019 16:14 Stage of : OB Triage Datetime: 02/19/2019 15:43 Stage of : OB Triage Datetime: 02/19/2019 15:27 Labor Evaluation Frequency: 0 Monitor Mode: External Pattern: Normal: <= 5 Contractions in 10 Minutes Resting Tone [place]: Relaxed Heart Rate FHR Baseline Rate: 155 Monitor Mode: External US Variability: Moderate 6-25 bpm Accelerations: 10X10 Decelerations: None Category: Category I Pain Assessment Pain Scale: 0 Pain Presence: None/Denies Pain Type: N/A Pain Goal: 3 Pain Relief Measures: Comfort Measures Datetime: 02/19/2019 14:19 Stage of : OB Triage Assessment Type: Triage Maternal Assessment Level of Consciousness: Fully Conscious DTR's/Clonus: DTRs 2+; No Clonus Headache: Denies Blurred Vision: No Respiratory Effort: Unlabored; Regular Rhythm; Equal Expansion Breath Sounds, Left: Clear and Equal Breath Sounds, Right: Clear and Equal Nausea/Vomiting: Denies RUQ Epigastric Pain: Denies Facial Edema: None Temperature Route: Axillary Fall Risk Assessment History of Falling: (0) No Secondary Diagnosis: (0) No Ambulatory Aid: (0) Bedrest/Nurse Assist IV Therapy: (0) No Gait: (0) Normal/Bedrest/Immobile Mental Status: (0) Oriented to Own Ability Fall Score: 0 Fall Risk Score Definition: No Risk: No action required Labor Evaluation Frequency: X1 Monitor Mode: External Duration (sec)2399: 50 Quality: Mild Pattern: Normal: <= 5 Contractions in 10 Minutes Resting Tone [place]: Relaxed Heart Rate FHR Baseline Rate: 145 Monitor Mode: External US Variability: Moderate 6-25 bpm Accelerations: 10X10 Decelerations: None Category: Category I Pain Assessment Pain Scale: 0 Pain Presence: None/Denies Pain Type: N/A Pain Location: Perineum Pain Goal: 3 Pain Relief Measures: Comfort Measures Datetime: 02/19/2019 14:17 Time of Arrival: 02/19/2019 13:40 EGA: 32.6 Arrived By: Ambulatory Arrived From: Home Chief Complaint: was sent from office to r/o pih, denies h/a, blurry vision or epigastric pain, d enies bleeding, leaking or uc's Movement: Present Contractions: Denies/Absent Rupture of Membranes: Denies Vaginal Bleeding: None Vaginal Discharge: Denies Recent Sexual Intercouse: Denies Abdominal Trauma: Not Applicable Patient Complaints: None Initial Plan: MONITOR,U/A C_S, bpp Datetime: 02/12/2019 22:23 Stage of : Antepartum Datetime: 02/12/2019 22:10 Stage of : Antepartum Datetime: 02/12/2019 22:05 Stage of : Antepartum Datetime: 02/12/2019 22:03 Stage of : Antepartum Maternal Assessment Level of Consciousness: Fully Conscious DTR's/Clonus: DTRs 2+; No Clonus Headache: Denies Breath Sounds, Left: Clear and Equal Breath Sounds, Right: Clear and Equal Nausea/Vomiting: Denies RUQ Epigastric Pain: Denies Labor Evaluation Frequency: occassional Monitor Mode: External Quality: Mild Pattern: Normal: <= 5 Contractions in 10 Minutes Resting Tone [place]: Relaxed Heart Rate FHR Baseline Rate: 140 Monitor Mode: External US FHR Baseline Changes: No Baseline Change Variability: Moderate 6-25 bpm Accelerations: 15X15 Decelerations: None Pain Presence: None/Denies Pain Type: N/A Datetime: 02/12/2019 21:53 Comments: Pt keeps taking doppler off, she is going home she states. Datetime: 02/12/2019 20:54 Stage of : Antepartum Maternal Assessment Level of Consciousness: Fully Conscious DTR's/Clonus: DTRs 2+; No Clonus Headache: Denies Headache: Denies Breath Sounds, Left: Clear and Equal Breath Sounds, Right: Clear and Equal Nausea/Vomiting: Denies RUQ Epigastric Pain: Denies Labor Evaluation Frequency: occassional Monitor Mode: External Quality: Mild Pattern: Normal: <= 5 Contractions in 10 Minutes Resting Tone [place]: Relaxed Heart Rate FHR Baseline Rate: 140 Monitor Mode: External US FHR Baseline Changes: No Baseline Change Variability: Moderate 6-25 bpm Accelerations: 15X15 Decelerations: None Pain Presence: None/Denies Pain Type: N/A Datetime: 02/12/2019 19:54 Assessment Type: Ongoing Assessment Maternal Assessment Level of Consciousness: Fully Conscious DTR's/Clonus: DTRs 2+; No Clonus Headache: Denies Headache: Denies Blurred Vision: No Respiratory Effort: Unlabored; Regular Rhythm; Equal Expansion Breath Sounds, Left: Clear and Equal Breath Sounds, Right: Clear and Equal Nausea/Vomiting: Denies Nausea/Vomiting: Denies RUQ Epigastric Pain: Denies RUQ Epigastric Pain: Denies Lower Extremities Edema: None Degree: None Upper Extremities Edema: None Degree: None Facial Edema: None Temperature Route: Oral Fall Risk Assessment History of Falling: (0) No Secondary Diagnosis: (0) No Ambulatory Aid: (0) Bedrest/Nurse Assist IV Therapy: (0) No Gait: (0) Normal/Bedrest/Immobile Mental Status: (0) Oriented to Own Ability Fall Score: 0 Fall Risk Score Definition: No Risk: No action required Labor Evaluation Frequency: occassional Monitor Mode: External Quality: Mild Pattern: Normal: <= 5 Contractions in 10 Minutes Resting Tone [place]: Relaxed Heart Rate FHR Baseline Rate: 140 Monitor Mode: External US FHR Baseline Changes: No Baseline Change Variability: Moderate 6-25 bpm Accelerations: 15X15 Decelerations: None Pain Presence: None/Denies Pain Type: N/A Datetime: 02/12/2019 18:56 Labor Evaluation Frequency: occassional Contraction Comments: pt denies feeling any pain at this time, abd pal pates soft Heart Rate FHR Baseline Rate: 140 Monitor Mode: External US FHR Baseline Changes: No Baseline Change Variability: Moderate 6-25 bpm Accelerations: 15X15 Decelerations: None Category: Category I Datetime: 02/12/2019 17:45 Headache: Denies Nausea/Vomiting: Denies RUQ Epigastric Pain: Denies Labor Evaluation Frequency: occassional Monitor Mode: External Quality: Mild Pattern: Normal: <= 5 Contractions in 10 Minutes Resting Tone [place]: Relaxed Heart Rate FHR Baseline Rate: 140 Monitor Mode: External US FHR Baseline Changes: No Baseline Change Variability: Moderate 6-25 bpm Accelerations: 15X15 Decelerations: None Category: Category I Pain Presence: None/Denies Pain Type: N/A Datetime: 02/12/2019 16:42 Labor Evaluation Frequency: 0 Duration (sec)2399: 0 Resting Tone [place]: Relaxed Heart Rate FHR Baseline Rate: 145 Monitor Mode: External US FHR Baseline Changes: No Baseline Change Variability: Moderate 6-25 bpm Accelerations: 10X10 Decelerations: None Category: Category I Datetime: 02/12/2019 15:31 Bedside Blood Glucose: 119 Datetime: 02/12/2019 15:30 Labor Evaluation Frequency: 0 Resting Tone [place]: Relaxed Heart Rate FHR Baseline Rate: 140 Monitor Mode: External US FHR Baseline Changes: No Baseline Change Variability: Moderate 6-25 bpm Accelerations: 15X15 Decelerations: None Category: Category I Datetime: 02/12/2019 14:13 Stage of : Antepartum Maternal Assessment Level of Consciousness: Fully Conscious DTR's/Clonus: DTRs 2+; No Clonus Headache: Denies Breath Sounds, Left: Clear and Equal Breath Sounds, Right: Clear and Equal Nausea/Vomiting: Denies RUQ Epigastric Pain: Denies Labor Evaluation Frequency: occassional Monitor Mode: External Resting Tone [place]: Relaxed Heart Rate FHR Baseline Rate: 135 Monitor Mode: External US FHR Baseline Changes: No Baseline Change Variability: Moderate 6-25 bpm Accelerations: 15X15 Decelerations: None Category: Category I Pain Assessment Pain Scale: 0 Pain Presence: None/Denies Pain Type: N/A Datetime: 02/12/2019 13:15 Stage of : Antepartum Maternal Assessment Level of Consciousness: Fully Conscious Labor Evaluation Frequency: occassional Monitor Mode: External Resting Tone [place]: Relaxed Heart Rate FHR Baseline Rate: 135 Monitor Mode: External US FHR Baseline Changes: No Baseline Change Variability: Moderate 6-25 bpm Accelerations: 15X15 Decelerations: None Category: Category I Pain Assessment Pain Scale: 0 Pain Presence: None/Denies Pain Type: N/A Datetime: 02/12/2019 12:15 Stage of : Antepartum Maternal Assessment Level of Consciousness: Fully Conscious DTR's/Clonus: DTRs 2+; No Clonus Headache: Denies Breath Sounds, Left: Clear and Equal Breath Sounds, Right: Clear and Equal Nausea/Vomiting: Denies RUQ Epigastric Pain: Denies Labor Evaluation Frequency: occassional Monitor Mode: External Resting Tone [place]: Relaxed Heart Rate FHR Baseline Rate: 140 Monitor Mode: External US FHR Baseline Changes: No Baseline Change Variability: Moderate 6-25 bpm Accelerations: 15X15 Decelerations: None Category: Category I Pain Assessment Pain Scale: 0 Pain Presence: None/Denies Pain Type: N/A Datetime: 02/12/2019 11:15 Stage of : Antepartum Monitor Mode: External Resting Tone [place]: Relaxed Heart Rate FHR Baseline Rate: 140 Monitor Mode: External US FHR Baseline Changes: No Baseline Change Variability: Moderate 6-25 bpm Accelerations: 15X15 Decelerations: None Category: Category I Pain Assessment Pain Scale: 0 Pain Presence: None/Denies Pain Type: N/A Datetime: 02/12/2019 10:15 Stage of : Antepartum Monitor Mode: External Resting Tone [place]: Relaxed Heart Rate FHR Baseline Rate: 135 Monitor Mode: External US FHR Baseline Changes: No Baseline Change Variability: Moderate 6-25 bpm Accelerations: 15X15 Decelerations: None Category: Category I Pain Assessment Pain Scale: 0 Pain Presence: None/Denies Pain Type: N/A Datetime: 02/12/2019 09:15 Stage of : Antepartum Monitor Mode: External Resting Tone [place]: Relaxed Contraction Comments: occassional per toco. pt denies ctx's Heart Rate FHR Baseline Rate: 135 Monitor Mode: External US FHR Baseline Changes: No Baseline Change Variability: Moderate 6-25 bpm Accelerations: 15X15 Decelerations: None Category: Category I Datetime: 02/12/2019 08:15 Stage of : Antepartum Assessment Type: Ongoing Assessment Maternal Assessment Level of Consciousness: Fully Conscious DTR's/Clonus: DTRs 2+; No Clonus Headache: Denies Blurred Vision: No Respiratory Effort: Unlabored; Regular Rhythm; Equal Expansion Breath Sounds, Left: Clear and Equal Breath Sounds, Right: Clear and Equal Nausea/Vomiting: Denies RUQ Epigastric Pain: Denies Lower Extremities Edema: None Degree: None Upper Extremities Edema: None Degree: None Facial Edema: None Temperature Route: Oral Fall Risk Assessment History of Falling: (0) No Secondary Diagnosis: (0) No Ambulatory Aid: (0) Bedrest/Nurse Assist IV Therapy: (0) No Gait: (0) Normal/Bedrest/Immobile Mental Status: (0) Oriented to Own Ability Fall Score: 0 Fall Risk Score Definition: No Risk: No action required Monitor Mode: External Contraction Comments: pt denies feeling pain or ctx's Monitor Mode: External US Variability: Moderate 6-25 bpm Pain Assessment Pain Scale: 0 Pain Presence: None/Denies Pain Type: N/A Datetime: 02/12/2019 07:54 Stage of : Antepartum Datetime: 02/12/2019 07:00 Labor Evaluation Frequency: occasional Monitor Mode: External Duration (sec)2399: 50-60 Pattern: Normal: <= 5 Contractions in 10 Minutes Monitor Mode: External US Comments: pt off monitor Datetime: 02/12/2019 06:00 Labor Evaluation Frequency: 2-6 Monitor Mode: External Duration (sec)2399: 60-120 Pattern: Normal: <= 5 Contractions in 10 Minutes Heart Rate FHR Baseline Rate: 135 Monitor Mode: External [place] Variability: Moderate 6-25 bpm Decelerations: None Category: Category I Datetime: 02/12/2019 05:00 Labor Evaluation Frequency: irregular Monitor Mode: External Duration (sec)2399: 60-120 Pattern: Normal: <= 5 Contractions in 10 Minutes Heart Rate FHR Baseline Rate: 135 Monitor Mode: External US Variability: Moderate 6-25 bpm Accelerations: 15X15 Decelerations: None Category: Category I Datetime: 02/12/2019 04:54 Monitor Mode: External Monitor Mode: External US Pain Assessment Comments: pt sleeping Datetime: 02/12/2019 04:00 Labor Evaluation Frequency: irregular Monitor Mode: External Duration (sec)2399: 80-120 Pattern: Normal: <= 5 Contractions in 10 Minutes Heart Rate FHR Baseline Rate: 135 Monitor Mode: External US Variability: Moderate 6-25 bpm Decelerations: None Datetime: 02/12/2019 03:05 Monitor Mode: External US Datetime: 02/12/2019 03:00 Labor Evaluation Frequency: irregular Monitor Mode: External Duration (sec)2399: 80-120 Pattern: Normal: <= 5 Contractions in 10 Minutes Heart Rate FHR Baseline Rate: 135 Monitor Mode: External US Variability: Moderate 6-25 bpm Decelerations: None Comments: loss of contact Datetime: 02/12/2019 02:25 Monitor Mode: External US Datetime: 02/12/2019 02:00 Labor Evaluation Frequency: ocassional Monitor Mode: External Duration (sec)2399: 60-90 Pattern: Normal: <= 5 Contractions in 10 Minutes Heart Rate FHR Baseline Rate: 135 Monitor Mode: External US Variability: Moderate 6-25 bpm Accelerations: 15X15 Decelerations: None Category: Category I Datetime: 02/12/2019 01:38 Monitor Mode: External Monitor Mode: External US Datetime: 02/12/2019 01:00 Labor Evaluation Frequency: 0 Monitor Mode: External Pattern: Normal: <= 5 Contractions in 10 Minutes Heart Rate FHR Baseline Rate: 145 Monitor Mode: External US Variability: Moderate 6-25 bpm Accelerations: 15X15 Decelerations: None Datetime: 02/12/2019 00:00 Labor Evaluation Frequency: OCASSIONAL Monitor Mode: External Duration (sec)2399: 60-100 Pattern: Normal: <= 5 Contractions in 10 Minutes Heart Rate FHR Baseline Rate: 150 Monitor Mode: External US Variability: Moderate 6-25 bpm Accelerations: 15X15 Decelerations: None Comments: LOSS OF CONTACT Datetime: 02/11/2019 23:40 Monitor Mode: External US Datetime: 02/11/2019 23:13 Monitor Mode: External US Datetime: 02/11/2019 23:00 Labor Evaluation Frequency: OCCASIONAL Monitor Mode: External Duration (sec)2399: 60-80 Pattern: Normal: <= 5 Contractions in 10 Minutes Heart Rate FHR Baseline Rate: 145 Monitor Mode: External [place] Variability: Moderate 6-25 bpm Accelerations: 15X15 Decelerations: None Category: Category I Datetime: 02/11/2019 22:00 Labor Evaluation Frequency: IRREGULAR Monitor Mode: External Duration (sec)2399: 50-90 Pattern: Normal: <= 5 Contractions in 10 Minutes Heart Rate FHR Baseline Rate: 145 Monitor Mode: External [place] Variability: Moderate 6-25 bpm Accelerations: 15X15 Decelerations: None Category: Category I Datetime: 02/11/2019 21:00 Labor Evaluation Frequency: IRREGULAR Monitor Mode: External Duration (sec)2399: 80-120 Pattern: Normal: <= 5 Contractions in 10 Minutes Heart Rate FHR Baseline Rate: 135 Monitor Mode: External [place] Variability: Moderate 6-25 bpm Accelerations: 15X15 Decelerations: None Category: Category I Datetime: 02/11/2019 20:27 Assessment Type: Admission Assessment Vaginal Bleeding: None Maternal Assessment Level of Consciousness: Fully Conscious DTR's/Clonus: DTRs 2+; No Clonus Headache: Denies Blurred Vision: No Respiratory Effort: Unlabored; Regular Rhythm; Equal Expansion Breath Sounds, Left: Clear and Equal Breath Sounds, Right: Clear and Equal Nausea/Vomiting: Denies RUQ Epigastric Pain: Denies Lower Extremities Edema: None Degree: None Upper Extremities Edema: None Degree: None Facial Edema: None Fall Risk Assessment History of Falling: (0) No Secondary Diagnosis: (0) No Ambulatory Aid: (0) Bedrest/Nurse Assist IV Therapy: (0) No Gait: (0) Normal/Bedrest/Immobile Mental Status: (0) Oriented to Own Ability Fall Score: 0 Fall Risk Score Definition: No Risk: No action required Pain Assessment Pain Scale: 0 Pain Presence: None/Denies Pain Goal: 0 Vaginal Exam Membrane Status: Intact Datetime: 02/11/2019 20:00 Labor Evaluation Frequency: 0 Monitor Mode: External Pattern: Normal: <= 5 Contractions in 10 Minutes Heart Rate FHR Baseline Rate: 135 Monitor Mode: External [place] Variability: Moderate 6-25 bpm Accelerations: 15X15 Decelerations: None Category: Category I Datetime: 02/11/2019 19:00 Labor Evaluation Frequency: 80-90 Monitor Mode: External Duration (sec)2399: occ Quality: Moderate Pattern: Normal: <= 5 Contractions in 10 Minutes Resting Tone [place]: Relaxed Heart Rate FHR Baseline Rate: 140 Monitor Mode: External [place] Variability: Moderate 6-25 bpm Accelerations: 15X15 Decelerations: None Category: Category I Datetime: 02/11/2019 18:00 Monitor Mode: External Pattern: Normal: <= 5 Contractions in 10 Minutes Resting Tone [place]: Relaxed Contraction Comments: none noted Heart Rate FHR Baseline Rate: 140 Monitor Mode: External [place] Variability: Moderate 6-25 bpm Accelerations: 15X15 Decelerations: Variable Category: Category II Pain Presence: None/Denies Pain Type: N/A Datetime: 02/11/2019 17:00 Labor Evaluation Frequency: none Monitor Mode: External Resting Tone [place]: Relaxed Heart Rate FHR Baseline Rate: 140 Monitor Mode: External [place] Variability: Moderate 6-25 bpm Accelerations: 15X15 Decelerations: None Category: Category I Pain Presence: None/Denies Pain Type: N/A Datetime: 02/11/2019 16:18 Stage of : OB Triage Labor Evaluation Frequency: irreg Monitor Mode: External Duration (sec)2399: 60-80 Quality: Moderate Pattern: Normal: <= 5 Contractions in 10 Minutes Resting Tone [place]: Relaxed Heart Rate FHR Baseline Rate: 150 Monitor Mode: External [place] Variability: Moderate 6-25 bpm Accelerations: 15X15 Decelerations: None Category: Category I Pain Presence: None/Denies Pain Type: N/A Datetime: 02/11/2019 15:55 Assessment Type: Triage Maternal Assessment Level of Consciousness: Fully Conscious DTR's/Clonus: DTRs 2+; No Clonus Headache: Denies Blurred Vision: No Respiratory Effort: Unlabored; Regular Rhythm; Equal Expansion Breath Sounds, Left: Clear and Equal Breath Sounds, Right: Clear and Equal Nausea/Vomiting: Denies RUQ Epigastric Pain: Denies Lower Extremities Edema: None Degree: None Upper Extremities Edema: None Degree: None Facial Edema: None Fall Risk Assessment History of Falling: (0) No Secondary Diagnosis: (0) No Ambulatory Aid: (0) Bedrest/Nurse Assist IV Therapy: (0) No Gait: (0) Normal/Bedrest/Immobile Mental Status: (0) Oriented to Own Ability Fall Score: 0 Fall Risk Score Definition: No Risk: No action required Datetime: 02/11/2019 15:54 Time of Arrival: 02/11/2019 15:35 EGA: 31.5 Arrived By: Ambulatory Arrived From: Dr. Mora Movement: Present Contractions: Denies/Absent Rupture of Membranes: Denies Vaginal Bleeding: None Vaginal Discharge: Denies Recent Sexual Intercouse: Denies Abdominal Trauma: Not Applicable Patient Complaints: None Time Provider Notified: 02/11/2019 16:08 Provider Notified: Cadence Initial Plan: toco, efm, v/s Datetime: 12/10/2018 16:53 Membranes Ruptured Date/Time: 02/24/2019 00:02 Membranes Rupture Method: Artificial Amniotic Fluid Color: Clear Amniotic Fluid Amount: Moderate Amniotic Fluid Odor: None Presentation 'A': Cephalic Datetime: 12/10/2018 16:49 Fall Score: 0 Fall Risk Score Definition: No Risk: No action required Datetime: 12/10/2018 16:37 EGA: 22.5
[2019-03-04] MEDS: ACCU-CHEK XX SCH ×4 (07:30→20:05)
[2019-03-04] MEDS: LACTATED RINGER'S 1,000 ML IV SCH ×2 (08:31→19:19)
[2019-03-04] MEDS: MAGNESIUM SULFATE 20 GM/500 ML 500 ML IV SCH ×2 (08:36→17:30)
[2019-03-04] MEDS: PRENATAL VITAMIN PO SCH (08:40)
[2019-03-04] MEDS: LABETALOL 200 MG TAB PO SCH ×2 (08:41→19:57)
--- NOTE | 2019-03-04 19:19 | PREOPHP ---
DATE OF ADMISSION: 03/03/2019 HISTORY OF PRESENT ILLNESS: Ms. Thu Durán is a 28-year-old 1, para 1, status post jen shahnaz low transverse delivery on 02/24/2019 secondary to preeclampsia with severe features. She was discharged home on postop day 4 and presented to triage in labor and delivery yesterday compl aining of home blood pressures of 160/102 with headaches. She was admitted for seizure prophylaxis w ith magnesium sulfate and also started her on labetalol 200 mg p.o. b.i.d. antihypertensive medicatio n. She had a significant history of gestational hypertension in her last . Otherwise, she currently does not have any visual changes, epigastric pain or nausea and vomiting. PAST MEDICAL HISTORY: Again, gestational hypertension. MEDICATIONS: vitamins. PAST SURGICAL HISTORY: x1 previous on 02/24/2019. OBSTETRIC HISTORY: x1 previous section. GYNECOLOGIC HISTORY: 10, regular 3 to 4 days. Denies any sexually transmitted infections. Sexually active with 1 partner. SOCIAL HISTORY: Denies any smoking, drugs or alcohol. FAMILY HISTORY: None. REVIEW OF SYSTEMS: All within normal except history of present illness. PHYSICAL EXAMINATION: VITAL SIGNS: Currently, blood pressure is 130s over 80s. HEENT: Within normal. LUNGS: CTA bilateral. CARDIOVASCULAR: S1, S2. Regular rate, rhythm. ABDOMEN: Soft, nontender, negative distention. Clean, dry, intact. EXTREMITIES: Negative edema. No calf tenderness. PELVIC: Vaginal exam deferred. LABORATORY DATA: [facility] labs within normal. ASSESSMENT: Status post primary low transverse delivery on 02/24/2019, readmitted for postp artum preeclampsia. PLAN: CT scan of the head with and without contrast. Neurology consultation. Continue seizure prop hylaxis and monitor the patient closely. Dictated By: MICHAEL DA SILVA/MIKAYLA Conf#: [id number] DID#: [id number]
[2019-03-04] MEDS ORDERED: OXYCODONE/ACETAMINOPHEN (5/325) TAB PO PRN ×2 (19:30)
[2019-03-05] VITALS (13 sets, daily range): BP systolic 117–140; BP diastolic 73–98; PULSE 67–86; RESP 16–19
[2019-03-05] MEDS: ACETAMINOPHEN 325 MG TAB PO PRN ×2 (04:43→17:40)
[2019-03-05] MEDS: LACTATED RINGER'S 1,000 ML IV SCH (05:22)
[2019-03-05] MEDS: MAGNESIUM SULFATE 20 GM/500 ML 500 ML IV SCH (05:23)
[2019-03-05] MEDS: PRENATAL VITAMIN PO SCH (08:58)
[2019-03-05] MEDS: LABETALOL 200 MG TAB PO SCH ×2 (08:58→22:18)
--- NOTE | 2019-03-05 17:12 | QN ---
Documentation Comment s/p primary c/s for preecclampsia at 33w on 02/24/19 been receiving magnesium sulfate since admission on 03/03/19 no more headache on labetalol 200mg BID BP 117-140/80-98 no headache no chest pain or sob or visual disturbance d/c magnesium today and observe JAMES HOPKINS MD Mar 05, 2019 17:12
[2019-03-05] MEDS: ACCU-CHEK XX SCH (20:05)
[2019-03-06 04:00] VITALS: BP 140/96; PULSE 75; RESP 18
[2019-03-06] MEDS: ACETAMINOPHEN 325 MG TAB PO PRN ×2 (05:22→21:08)
[2019-03-06] MEDS: ACCU-CHEK XX SCH ×4 (07:30→20:45)
[2019-03-06 08:00] VITALS: BP_SYST 124; BP_SYST 128; BP_DIAS 79; BP_DIAS 80; PULSE 89; PULSE 94; RESP 18
[2019-03-06 09:00] VITALS: BP 128/79; PULSE 94; RESP 18
[2019-03-06] MEDS: LABETALOL 200 MG TAB PO SCH ×2 (09:09→20:46)
[2019-03-06] MEDS: PRENATAL VITAMIN PO SCH (09:09)
--- NOTE | 2019-03-06 13:20 | PN ---
Date/Time of Note Date/Time of Note DATE: 03/06/19 TIME: 13:19 OB Subjective Subjective Subjective Patient denies any headache, blurred vision, epigastric pain or right upper q uadrant pain. Denies any shortness of breath or chest pain. Baby is in NICU. Reports decreased vaginal bleeding. OB Objective Objective Objective Appearance: Alert and oriented x4 does not appear to be in any acute distress Abdomen: Soft, fundus firm and palpable below the umbilicus and nontender. incision well-healed with no evidence of infection or hematoma or drainage Breast: No evidence of mastitis or fissure Extremities: No calf tenderness, no click no edema Lungs: Clear to auscultation bilaterally CV: RRR VS - Last 72 Hours, by Label Date Temp Pulse Resp B/P (MAP) Pulse Ox O2 O2 Flow FiO2 Time Delivery Rate 03/06/19 98.3 94 18 128/79 Room Air 08:00 (95) 03/06/19 97.1 75 18 140/96 Room Air 04:00 (111) 03/05/19 74 122/82 23:45 (95) 03/05/19 97.7 75 18 129/73 Room Air 19:50 (91) 03/05/19 98.4 79 16 132/79 Room Air 17:47 (96) 03/05/19 98.1 77 17 133/91 Room Air 15:50 (105) 03/05/19 76 18 134/96 Room Air 09:30 (109) 03/05/19 98.5 67 16 129/94 Room Air 08:30 (106) 03/05/19 80 19 117/80 07:00 (92) 03/05/19 79 19 132/88 06:00 (103) 03/05/19 78 19 132/98 05:00 (109) 03/05/19 98.1 86 19 140/85 Room Air 03:58 (103) 03/05/19 75 18 137/91 02:58 (106) 03/05/19 74 19 128/89 02:00 (102) 03/05/19 71 18 127/93 00:30 (104) 03/04/19 79 18 137/92 Room Air 22:00 (107) 03/04/19 80 19 134/88 21:00 (103) 03/04/19 80 141/95 Room Air 20:05 (110) 03/04/19 98.4 80 19 149/104 Room Air 20:00 (119) 03/04/19 80 16 129/99 17:38 (109) 03/04/19 82 17 130/97 16:34 (108) 03/04/19 98.4 81 16 107/74 Room Air 15:30 (85) 03/04/19 91 14 130/89 Room Air 14:30 (103) 03/04/19 87 14 116/86 13:30 (96) 03/04/19 98.4 84 15 129/92 Room Air 12:30 (104) 03/04/19 83 14 121/85 11:30 (97) 03/04/19 86 16 103/74 10:30 (84) 03/04/19 89 108/86 09:30 (93) 03/04/19 98.6 98 17 144/102 Room Air 08:30 (116) 03/04/19 91 16 125/97 Room Air 07:30 (106) 03/04/19 86 17 120/95 06:30 (103) 03/04/19 88 19 130/91 05:30 (104) 03/04/19 98.3 97 18 128/94 04:30 (105) 03/04/19 94 18 133/90 03:30 (104) 03/04/19 83 17 127/87 02:30 (100) 03/04/19 84 18 130/89 01:30 (103) 03/04/19 98.1 82 19 126/91 00:30 (103) 03/03/19 76 18 124/87 Room Air 23:30 (99) 03/03/19 83 19 133/96 Room Air 23:08 (108) 03/03/19 98.0 85 18 142/115 Room Air 22:30 (124) 03/03/19 98.6 99 16 154/114 Room Air 20:27 (127) Laboratory Tests Test 03/05/19 17:39 03/06/19 08:21 03/06/19 10:14 Bedside Glucose 115 79 78 OB Assessment/Plan Other Assessment: Admitted for preeclampsia Status post magnesium Currently blood pressure well controlled with p.o. labetalol She is asymptomatic Had done head CT when presented to the hospital post fall Recommended neurology consult prior to discharge home for any recommendation for clearance prior to discharge From OB standpoint of view she might be able to go home if she cleared by neurology with her current treatment with labetalol p.o. with a strict preeclampsia precaution again and follow-up within 3 days after discharge from the hospital with primary OB office or sooner as needed Consult for neurologist in-house placed. CHER HANSON MD Mar 06, 2019 13:20
[2019-03-06 16:00] VITALS: BP 123/71; PULSE 67; RESP 18
[2019-03-06 19:40] VITALS: BP 120/78; PULSE 89; RESP 17
--- NOTE | 2019-03-06 20:55 | CONS ---
Assessment/Plan Assessment/Plan Hospital Course (Demo Recall) 1. headache: Resolved. Patient does not have any focal neurological deficits on physical exam at the present time.. She denies any focal neurological symptoms in the past when she had her headaches. Her Bp is well controlled right now on labetalol.. Her head ct on 03/04 was negative and acute abnormalities. At this point I feel the patient is safe for discharge. I do not feel any further testing is indicated at the present time. I have advised if her headaches return to the emergency department if she starts experiencing new neurological symptoms such as weakness in any limbs, changes in her vision, changes in speech, etc. 2. Hx of Preeclampsia: s/p treatment with Magnesium. currently on labetolol for HTN. Further management as per OB, she does have an outpatient follow-up scheduled in the next coming few days, advised her to keep that appointment. 3. HTN: in the setting of preeclampsia: Continue labetalol as prescribed, follow-up with OB appointment that is been scheduled. Thank you for this consultation. Consultation Date/Type/Reason Admit Date/Time Mar 03, 2019 at 20:39 Date/Time of Note DATE: 03/06/19 TIME: 20:54 Hx of Present Illness This is a 28-year-old female G1, P1 status post who was readmitted to [facility] on 03/04 due to elevated blood pressures and headache. Patient's previous hospital course during her delivery resulted in a fall during her inpatient stay. She had a CT scan of the brain that was done at that time that was negative for any acute abnormalities. She returned due to as mentioned earlier elevated blood pressures and a headache. Patient was admitted and was given magnesium for seizure prophylaxis and she was also initiated on labetalol 200 mg twice a day. She had a repeat CT of the brain performed on 03/04 which was again negative for any acute abnormalities. Her blood pressures have been under adequate control during her current admission. Her headaches have resolved. Original plan was to have a neurology consultation in regards to her headaches and her blood pressure. However due to some communication issues this was not able to be obtained. I was asked to evaluate the patient. She currently is lying in bed in no acute distress she denies any headaches. She reports that with her headache she does not have any changes in her speech or her vision or any numbness or tingling or weakness in any of her limbs. She denies ever having any changes in her vision numbness tingling or weakness in her limbs in the past as well. Allergies: Penicillin Medications: vitamins, labetalol Const: As per HPI Eyes : No pain discharge or redness or change in visual acuity ENT: No pain, sore throat, congestion, congestion, dysphagia or discharge Respiratory: No shortness of breath, cough, sputum, wheezing, or pleuritic pain Cardiovascular: No chest pain, palpitation, PND, or edema GI : no change in appetite, abdominal pain, nausea, vomiting, diarrhea, constipation, or change in the color his stool Genitourinary: No dysuria, hematuria, flank pain , discharge or CVA tenderness Musculoskeletal: No joint pain, back pain, neck pain, restricted range of motion in neck or joints Skin: No rash, bruising or hives Neuro: As per HPI Endocrine: No polyuria, polydipsia, temperature intolerance Psych: No hallucination, depression, anxiety or suicidal ideation Past Medical History Gestational hypertension Home Meds Active Scripts Labetalol Hcl* (Labetalol Hcl*) 200 Mg Tablet, 200 MG PO BID, #60 TAB 2 Refills Prov:CHER HANSON MD 03/06/19 Reported Medications Pnv95/Ferrous Fumarate/FA ( Vitamins Tablet) 1 Each Tablet, 1 EACH PO DAILY, TAB 12/10/18 Medications Current Medications Calcium Gluconate (Ca Gluc) 1 gm ONCE PRN IV FOR MAGNESIUM TOXICITY; Start 03/03/19 at 21:00 Prenat Multivit/ Lyman/Iron/Folic Ac () 1 tab DAILY PO Last administered on 03/06/19at 09:09; Admin Dose 1 TAB; Start 03/04/19 at 09:00 Oxytocin/Lactated Ringer's 500 ml @ 0 mls/hr ONCE PRN IV .VAGINAL BLEEDING; Start 03/03/19 at 21:00 Methylergonovine Maleate (Methergine) 0.2 mg ONCE PRN IM .VAGINAL BLEEDING; Start 03/03/19 at 21:00 Carboprost Tromethamine (Hemabate) 250 mcg ONCE PRN IM .VAGINAL BLEEDING; Start 03/03/19 at 21:00 Misoprostol (Cytotec) 1,000 mcg ONCE PRN WA .VAGINAL BLEEDING; Start 03/03/19 at 21:00 Acetaminophen (Tylenol Tab) 650 mg Q4H PRN PO MILD PAIN(1-3)OR ELEVATED TEMP Last administered on 03/06/19at 05:22; Admin Dose 650 MG; Start 03/03/19 at 21:00 Labetalol HCl (Normodyne) 200 mg BID PO Last administered on 03/06/19at 20:46; A dmin Dose 200 MG; Start 03/03/19 at 21:00 Diagnostic Test (Pha) (Accu-Chek) 1 ea FBSPP XX Last administered on 03/06/19at 20:45; Admin Dose 1 EA; Start 03/04/19 at 06:00 Oxycodone/ Acetaminophen (Percocet (5/ 325)) 1 tab Q4H PRN PO MODERATE PAIN LEVEL 4-6; Start 03/04/19 at 19:30 Oxycodone/ Acetaminophen (Percocet (5/ 325)) 2 tab Q4H PRN PO PAIN LEVEL 7-10; Start 03/04/19 at 19:30 Allergies: Coded Allergies: Penicillins (Verified Allergy, Intermediate, rash, 03/03/19) Past Surgical History x1 Family History Significant Family History: no pertinent family hx Social History Alcohol Use: none Smoking Status: Never smoker Drug Use: none Exam/Review of Systems Exam Vitals Vital Signs Date Temp Pulse Resp B/P (MAP) Pulse Ox O2 O2 Flow FiO2 Time Delivery Rate 03/06/19 97.9 89 17 120/78 Room Air 19:40 (92) Intake and Output 03/05/19 03/05/19 03/06/19 1515:00 23:00 07:00 IntakeIntake Total 1800 ml OutputOutput Total 2200 ml BalanceBalance -400 ml Exam General: Patient is a pleasant female currently sitting upright in bed in no acute distress. She is conversing with her family. HEENT: Atraumatic, normocephalic. The pupils are equal, round and reactive. Extraocular motor are intact Neck: Supple with full range of motion. No rigidity or meningismus Chest: Nontender Lungs: Clear to auscultation bilaterally no crackles rales or wheezing Heart: Normal S1-S2, Regular rhythm and rate. No murmur, S3, or S4 Abdomen: Soft , nontender, nondistended , bowel sounds are present. No guarding no rebound tenderness , No masses or organomegaly. No costovertebral temporal angle mass Extremities: Normal to inspection, no edema no cyanosis Neurologic: Normal mental status, speech normal, cranial nerves II through XII are intact, motor and sensory are intact, strength 5 out of 5 in bilateral upper and lower extremities. No pronator drift. Gait within normal values. Additional Comments PROCEDURE: CT Head Without Intravenous Contrast CLINICAL INDICATION: Frontal headache. TECHNIQUE: Axial computed tomography images of the head/brain without intravenous contrast. Sagittal and coronal reformatted images were created and reviewed. CTDIvol (mGy) = 38.10; total DLP (mGy-cm) = 634.23. This CT exam was performed using one or more of the following dose reduction techniques: automated exposure control, adjustment of the mA and/or kV according to patient size, and/or use of iterative reconstruction technique. DICOM images are available. COMPARISON: None FINDINGS: BRAIN: Unremarkable. No hemorrhage. No significant white matter disease. No edema. VENTRICLES: Unremarkable. No ventriculomegaly. BONES/JOINTS: Unremarkable. No acute fracture. SOFT TISSUES: Unremarkable. SINUSES: Unremarkable as visualized. No acute sinusitis. MASTOID AIR CELLS: Unremarkable as visualized. No mastoid effusion. IMPRESSION: Unremarkable noncontrast CT scan of the head. RPTAT: [facility] Jovanni Hu Physician Hospitality Host Date Time Electronically viewed and signed by Jovanni Hu Physician Hospitality Host on 03/04/2019 20:27 RmC/ CC: MICHAEL BENNETT MD [id number] PROCEDURE: CT brain without contrast CLINICAL INDICATION: Fall. Hit head on floor/head injury TECHNIQUE: CT of the brain without contrast was performed on a multidetector CT scanner, with multiplanar reformats. One or more of the following dose reduction techniques were used: Automated exposure control, adjustment in mA and / or kV according to patient size, use of iterative reconstructive technique. CTDIvol = 39 mGy; DLP = 634 mGy-cm. DICOM images are available. COMPARISON: None available FINDINGS: No acute intracranial hemorrhage is identified. No extra-axial fluid collection is seen. There is no mass effect. No midline shift is identified. The ventricles and sulci are within normal limits for size and configuration. The density of the brain is unremarkable. Hayden-white junctions are preserved. Calvarium and skull base are intact. Mastoid air cells and imaged paranasal sinuses grossly clear. IMPRESSION: Unremarkable noncontrast CT of the brain. RPTAT: [facility] .Bubba Sawyer MD, Date Time Electronically viewed and signed by .Bubba Sawyer MD, on 02/25/2019 08:32 .O/ CC: CRYSTAL PATEL [id number] Results Result Diagram: 03/03/19205003/03/192050 Results 24hrs Laboratory Tests Test 03/06/19 08:21 03/06/19 10:14 03/06/19 15:06 Bedside Glucose 79 78 74 Medications Medication Current Medications Calcium Gluconate (Ca Gluc) 1 gm ONCE PRN IV FOR MAGNESIUM TOXICITY; Start 03/03/19 at 21:00 Prenat Multivit/ Optical Fabricator/Iron/Folic Ac () 1 tab DAILY PO Last administered on 03/06/19at 09:09; Admin Dose 1 TAB; Start 03/04/19 at 09:00 Oxytocin/Lactated Ringer's 500 ml @ 0 mls/hr ONCE PRN IV .VAGINAL BLEEDING; Start 03/03/19 at 21:00 Methylergonovine Maleate (Methergine) 0.2 mg ONCE PRN IM .VAGINAL BLEEDING; Start 03/03/19 at 21:00 Carboprost Tromethamine (Hemabate) 250 mcg ONCE PRN IM .VAGINAL BLEEDING; Start 03/03/19 at 21:00 Misoprostol (Cytotec) 1,000 mcg ONCE PRN WA .VAGINAL BLEEDING; Start 03/03/19 at 21:00 Acetaminophen (Tylenol Tab) 650 mg Q4H PRN PO MILD PAIN(1-3)OR ELEVATED TEMP Last administered on 03/06/19at 05:22; Admin Dose 650 MG; Start 03/03/19 at 21:00 Labetalol HCl (Normodyne) 200 mg BID PO Last administered on 03/06/19 20:46; Admin Dose 200 MG; Start 03/03/19 at 21:00 Diagnostic Test (Pha) (Accu-Chek) 1 ea FBSPP XX Last administered on 03/06/19at 20:45; Admin Dose 1 EA; Start 03/04/19 at 06:00 Oxycodone/ Acetaminophen (Percocet (5/ 325)) 1 tab Q4H PRN PO MODERATE PAIN LEVEL 4-6; Start 03/04/19 at 19:30 Oxycodone/ Acetaminophen (Percocet (5/ 325)) 2 tab Q4H PRN PO PAIN LEVEL 7-10; Start 03/04/19 at 19:30 MARIA GUADALUPE SUE Mar 06, 2019 20:55
--- NOTE | 2019-03-06 21:16 | PD.PPDC ---
GEOPHYSICAL LABORATORY DIRECTOR Discharge Instruction Provider Information Physician Information Cher Hanson MD Condition Pesoh2Mo Patient Condition: Ghjbo0b Good Diet [id number] Diet: Qycwl8q Special Diet (low sodium diet) Activity/Restrictions [id number] Restrictions: Athlj7i No Exercising No Lifting No Driving Nothing in the Vagina No Nixon No Tampons, douche Follow-up Follow-up with Physician: 3, Day/Days Provider Information: Folliw up in 3 days with Primary OB office or sooner PRN follow up at 2 and 6 weeks post again with primary OB office Return to clinic for [id number] BULLDOGGER Instructions: Infrc6z Fever greater than 101 Chills Worsening abdominal pain Excessive Vaginal Bleeding More than 2 pads per hour Unable to tolerate diet [id number] OB Instructions: Pfuum0u Breast Tenderness Depression Blurried Vision Headache [id number] Surgical Instructions: [id number] Incisional Drainage Incisional Redness CHER HANSON MD Mar 06, 2019 21:16
[2019-03-06] MEDS ORDERED: LABE200T25 PO (21:17)
--- NOTE | 2019-03-06 21:22 | DS ---
Date/Time of Note Date/Time of Note DATE: 03/06/19 TIME: 21:20 Discharge Summary Admission/Discharge Info Admit Date/Time Mar 03, 2019 at 20:39 Discharge Date/Time March 06, 2019 Discharge Diagnosis severe preeclampsia Status post fall Patient Condition: Good Consults Internal medicine Procedures Magnesium sulfate for seizure prophylaxis Management of blood pressure and optimization of hypertension CT scan of the head, rule out intracerebral hemorrhage Hx of Present Illness HISTORY OF PRESENT ILLNESS: Ms. Thu Durán is a 28-year-old 1, para 1, status post primary low transverse delivery on 02/24/2019 secondary to preeclampsia with severe features. She was discharged home on postop day 4 and presented to triage in labor and delivery yesterday complaining of home blood pressures of 160/102 with headaches. She was admitted for seizure prophylaxis with magnesium sulfate and also started her on labetalol 200 mg p.o. b.i.d. antihypertensive medication. She had a significant history of gestational hypertension in her last . Otherwise, she currently does not have any visual changes, epigastric pain or nausea and vomiting. Patient was noncompliant with taking her blood pressure medication after discharge from the hospital. She she had a fall at home. She underwent CT scan of the head that was essentially unremarkable. She also received magnesium for seizure prophylaxis and blood pressure medication for management of hypertension. She did well in-house. She did not have any complication. Her blood pressure was well controlled with p.o. labetalol 200 mg p.o. twice daily. Hospital day #4 patient was a stable for discharge. She was ambulating. She denied any headache, blurred vision epigastric pain or right upper quadrant pain. Her blood pressure was well controlled with p.o. labetalol 200 mg twice daily. Her vitals were stable and she was afebrile. She was advised to have a follow-up in 3 days after discharge from the hospital with primary OB office for monitoring and management of hypertension as well as to in 6 weeks postop. Patient verbalized understanding. All questions were answered to the patient's with satisfaction. Hospital Course None complicated Home Meds Active Scripts Labetalol Hcl* (Labetalol Hcl*) 200 Mg Tablet, 200 MG PO BID, #60 TAB 2 Refills Prov:CHER HANSON MD 03/06/19 Reported Medications Pnv95/Ferrous Fumarate/FA ( Vitamins Tablet) 1 Each Tablet, 1 EACH PO DAILY, TAB 12/10/18 Primary Care Provider Care Physician No Primary Time spent on discharge: > 30 minutes Pending Labs Laboratory Tests Test 03/06/19 08:21 03/06/19 10:14 03/06/19 15:06 03/06/19 20:44 Bedside 79 78 74 104 Glucose mg/dL (70-220) mg/dL (70-220) mg/dL (70-220) mg/dL (70-220) CHER HANSON MD Mar 06, 2019 21:22
--- NOTE | 2019-03-07 22:21 | DELSUM ---
Delivery Summary A-C Datetime Report Generated by CPN: 03/07/2019 22:20 DELIVERY PERSONNEL Network Designer: Dries, Freddy MATERNAL INFORMATION Delivery Anesthesia: Spinal Medications in Delivery: see anesthesia Delivery QBL (ml): 600 Placenta Cultured: No Maternal Complications: Other Other Maternal Complications: PIH LABOR SUMMARY EDC: 03/03/2019 00:00 No. Babies in Womb: 1 Attempted: No Labor Anesthesia: None LABOR INFORMATION Reason for Induction: Not Applicable Oxytocin: N/A Group B Beta Strep: Not Done Antibiotics # of Doses: 2 Antibiotics Time of Last Dose: 02/23/2019 23:40 Steroids Given: Full Course; >24Hs before Delivery Reason Steroids Not Administered: Not Applicable MEMBRANES Membranes Rupture Method: Artificial Rupture of Membranes: 02/24/2019 00:02 Length of Rupture (hr): 0.00 Amniotic Fluid Color: Clear Amniotic Fluid Amount: Moderate Amniotic Fluid Odor: None STAGES OF LABOR Stage 3 hr: 0 Stage 3 min: 2 CSECTION DELIVERY Primary Indication: Severe PIH, Unfavor Cervix CSection Urgency: Non Elective CSection Incidence: Primary Labor: No Labor Elective: Nonelective CSection Incision: Lower Uterine Transverse BABY A INFORMATION Infant Delivery Date/Time: 02/24/2019 00:02 Method of Delivery: Born in Route : No : N/A Forceps: N/A Vacuum Extraction: N/A Shoulder Dystocia : No SHOULDER DYSTOCIA BABY A Delivery Date/Time: 02/24/2019 00:02 PRESENTATION/POSITION BABY A Presentation: Cephalic Cephalic Presentation: Vertex Vertex Position: Left Occipital Anterior Breech Presentation: N/A PLACENTA INFORMATION BABY A Placenta Delivery Time : 02/24/2019 00:04 Placenta Method of Delivery: Manual Removal Placenta Status: Delivered SCORES BABY A Heart Rate 1 min: >100 bpm Resp Effort 1 min: Good Cry Reflex Irritability 1 min: Cough/Sneeze/Pulls Away Muscle Tone 1 min: Active Motion Color 1 min: Body [place], Extremit Blue Resuscitation Effort 1 min: Tactile Stimulation SCORE 1 MIN: 9 Heart Rate 5 min: >100 bpm Resp Effort 5 min: Good Cry Reflex Irritability 5 min: Cough/Sneeze/Pulls Away Muscle Tone 5 min: Active Motion Color 5 min: Body [place], Extremit Blue Resuscitation Effort 5 min: Tactile Stimulation SCORE 5 MIN: 9 INFORMATION BABY A Gestational Age at Delivery: 33.3 Gestational Status: - <34 Weeks Infant Outcome : Liveborn Infant Condition : Stable Sex: Female IDENTIFICATION/MEDS BABY A ID Band Number: [id number] ID Band Location: Right Leg; Left Arm Sensor Applied: No Vitamin K Given : Not Given Erythromycin Given: Not Given WEIGHT/LENGTH BABY A Birthweight (gm): 2285 Weight (lb): 5 Weight (oz): 1 Length (in): 18.00 Infant Length (cm): 45.72 CORD INFORMATION BABY A No. Cord Vessels: 3 Nuchal Cord : Around Neck x2, Loose Cord Blood Taken: Yes Suction: Mouth; Nose ASSESSMENT BABY A Complications: None Physical Findings at Delivery: Within Normal Limits Respirations: Appears Normal Mine Engineer/ALS Called : Yes Infant Care By: GEO Orantes RN Transferred To: NICU
== END 2019-03-06 21:50 | disposition home or self-care (01) | DRG 776 ==
LOC: OBT 20:00 → L-D 20:01 → OBT 20:39 → PP1 22:37
PROVIDERS: ADMIT Obstetrics & Gynecology; ATTEND Obstetrics & Gynecology
DX: O14.15 Severe pre-eclampsia, complicating the puerperium (principal); Z91.14 Patient's other noncompliance with medication regimen
CPT/HCPCS: 70450; 80053; 80076; 82962; 83735; 84560; 85025; 85610; 85730; 86850; 86900; 86901; G0463; J3475; J7120